=== PATIENT | male | born 1985 | race African-American/Black ===

== ENCOUNTER 2022-09-17 21:08 | Emergency (ER) | payer OTHER, SELFPAY ==
--- NOTE | ~2022-09-17 | XR_ITS ---
EXAMINATION: XR chest 2V DATE: 09/17/2022 21:49 INDICATION: Chest pain. TECHNIQUE: Frontal and lateral views of the chest were obtained. COMPARISON: None. FINDINGS: The chest demonstrates clear lungs without pneumonia, pleural effusion, or pneumothorax. Th e heart size is normal. IMPRESSION: 1. No acute cardiopulmonary disease. Reviewed, dictated and finalized at location A.
[2022-09-17 21:11] VITALS: BP 135/89; PULSE 82; RESP 16; TEMP 36.4; O2SAT 100
--- NOTE | 2022-09-17 21:28 | PC.NURSE ---
triage note completed by EVONNE Lomax
--- NOTE | 2022-09-17 21:34 | PC.NURSE ---
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 complaint of possible deviated septum and indigestion
--- NOTE | 2022-09-17 21:41 | ECG_ITS ---
Measurements Intervals [place] Rate: 78 P: 50 IN: 148 QRS: 38 QRSD: 118 T: 32 QT: 365 QTc: 418 Interpretive Statements SINUS RHYTHM INCOMPLETE RIGHT BUNDLE BRANCH BLOCK [90+ ms QRS DURATION, TERMINAL R IN V1/V2, 40+ ms S IN I/aVL/V4/V5/V6] ST ELEVATION CONSISTENT WITH PERICARDITIS, OR EARLY REPOLARIZATION [ST ELEVATION W/O NORMALLY INFLECTED T WAVE] NONSPECIFIC ST & T-WAVE ABNORMALITY NO PREVIOUS ECG AVAILABLE FOR COMPARISON Electronically Signed On 09-18-2022 13:56:55 CDT by Willy Ontiveros M.D.
[2022-09-17 22:05] LABS: Basophils Absolute Auto 0.1 K/mm3 (0.0-0.1); Basophils Percent Auto 1.2 % (0.2-1.2); Eosinophils Absolute Auto 0.4 K/mm3 (0-0.3); Eosinophils Percent Auto 5.2 % (0-4.4); Hematocrit 45.1 % (42.0-52.0); Hemoglobin 15.3 g/dL (14.0-18.0); Immature Granulocyte Absolute 0.02 K/mm3 (0.00-0.031); Immature Granulocyte Percent A 0.3 % (0-0.5); Lymphocytes Absolute Auto 1.59 K/mm3 (0.9-3.2); Lymphocytes Percent Auto 23.8 % (18.3-44.2); Mean Corpuscular HGB Conc 33.9 g/dl (32-36); Mean Corpuscular Hemoglobin 31.9 pg (26-34); Mean Corpuscular Volume 94.2 fl (80-100); Mean Platelet Volume 9.9 fl (7.4-10.4); Monocytes Absolute Auto 0.7 K/mm3 (0.1-0.6); Monocytes Percent Auto 10.3 % (2.6-8.5); Neutrophils Absolute Auto 3.9 K/mm3 (1.3-6.7); Neutrophils Percent Auto 59.2 % (45.5-73.1); Platelet Count Result 247 k/mm3 (150-375); Red Blood Count 4.79 M/mm3 (4.6-6.20); Red Cell Distribution Width 12.1 % (11.5-14.5); White Blood Count 6.7 K/mm3 (4.5-10.0)
[2022-09-17 22:19] LABS: Alanine Aminotransferase 27 U/L (6-50); Albumin Level 4.7 g/dL (3.5-5.1); Alkaline Phosphatase 37 U/L (38-126); Anion Gap 12 mmol/L (8-16); Aspartate Amino Transferase 27 U/L (17-59); Bilirubin,Total 0.4 mg/dL (0.2-1.3); Blood Urea Nitrogen 13 mg/dL (9-20); Calcium 9.1 mg/dL (8.4-10.2); Carbon Dioxide 30 mmol/L (22-30); Chloride 99 mmol/L (98-107); Estimated CRCL calculation 91 ml/min; Estimated Glomerular Filt Rate > 60; Glucose 90 mg/dL (65-110); Phosphorus 4.3 mg/dL (2.5-4.5); Potassium 4.1 mmol/L (3.4-5.0); Sodium 141 mmol/L (137-145)
[2022-09-17 22:36] LABS: Troponin I < 0.012 ng/mL (0.000-0.034)
--- NOTE | 2022-09-17 23:01 | ED.GENADULT ---
HPI - General Adult General Chief complaint: Neuro Symptoms/Deficit <JANEEN Figueroa Last Filed: 09/18/22 02:27> Stated complaint: tingling to bilateral arms/legs <Marycarmen Flores PA-C - Last Filed: 09/18/22 02:27> Time Seen by Provider: 09/17/22 21:29 <JANEEN Figueroa Last Filed: 09/18/22 02:27> History of Present Illness HPI narrative: 37-year-old male here for evaluation of paresthesias in his hands and feet for the past several hours. 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 Symptoms have improved without intervention since onset. He denies any pain, difficulty moving the limbs, swelling, fevers, chills, dysarthria, confusion, facial droop, changes to his vision. Additionally notes that he has had what he describes as acid reflux for the past 7 months. The pain comes on after a meal, is present in his epigastric region and is described as a burning sensation. Denies any nausea, vomiting, diaphoresis, leg swelling, exertional component of pain or cardiac history. <JANEEN Figueroa Last Filed: 09/18/22 02:27> Related Data Allergies/adverse reactions: Allergies Allergy/AdvReac Type Severity Reaction Status Date / Time No Known Allergies Allergy Verified 09/17/22 23:13 <JANEEN Figueroa Last Filed: 09/18/22 02:27> Review of Systems Review of Systems: Gen: Reports paresthesias in hands and feet. Denies fevers or chills Eyes: Denies eye pain or visual change ENT: Denies congestion Respiratory: Denies shortness of breath or cough CV: Denies chest pain or palpitations GI: Reports epigastric discomfort. Denies nausea, emesis or diarrhea denies burning, urgency, frequency or hematuria Musculoskeletal: Denies back pain or muscle pain Neuro: Denies numbness, tingling, weakness or focal weakness Skin: Denies rash Except as documented, all other systems reviewed and negative <JANEEN Figueroa Last Filed: 09/18/22 02:27> Exam Narrative: APPEARANCE: Well appearing, no pain in distress, well-nourished. Head: Normocephalic and atraumatic. EYES: PERRLA/EOMI, conjunctivae clear NOSE: No nasal drainage EARS: External ear normal in appearance THROAT: Oropharynx is clear. Mucous membranes are moist. NECK: Supple. No adenopathy, no masses. RESPIRATORY: Airway patent, respirations nonlabored. Clear to auscultation bilaterally, no rales, rhonchi, wheezing. CARDIOVASCULAR: Strong pulses in all 4 extremities. Regular rate and rhythm without murmurs, rubs, or gallops. ABDOMINAL: Normoactive bowel sounds. Soft, nontender, nondistended. No rebound tenderness or guarding. MUSCULOSKELETAL: 5 out of 5 strength in bilateral upper and lower extremities. Normal gait. Extremities are warm and well-perfused. Moves all extremities well. No edema. NEURO: Cranial nerves II through XII intact. [id number] normal. Normal speech. SKIN: Skin is warm and dry. No rashes. PSYCHIATRIC: Normal affect/mood. 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 I agree with the assessment and plan as documented. <Armani Rodríguez MD - Last Filed: 09/18/22 11:23> Vital Signs Vital signs: Vital Signs Temperature 97.6 F 09/17/22 21:11 Pulse Rate 82 09/17/22 21:11 Respiratory Rate 16 09/17/22 21:11 Blood Pressure 135/89 09/17/22 21:11 Pulse Oximetry 100 09/17/22 21:11 Temperature 97.6 F 09/17/22 21:11 Pulse Rate 82 09/17/22 21:11 Respiratory Rate 16 09/17/22 21:11 Blood Pressure 135/89 09/17/22 21:11 Pulse Oximetry 100 09/17/22 21:11 <Marycarmen Flores PA-C - Last Filed: 09/18/22 02:27> Vital Signs Temperature 97.6 F 09/17/22 21:11 Pulse Rate 82 09/17/22 21:11 Respiratory Rate 16 09/17/22 21:11 Blood Pressure 135/89 09/17/22 21:11 Pulse Oximetry 100
[2022-09-17] MEDS: BELLADONNA ALK/PHENOB ELIX 10 ML, MAG HYDROX/ALUMINUM HYD/SIMETH 30 ML, LIDOCAINE HCL 2... PO (23:17)
[2022-09-17 23:21] LABS: Lipase 77 U/L (23-300)
== END 2022-09-17 23:49 | disposition home or self-care (01) ==
PROVIDERS: Physician Assistant; Emergency Provider Preventive Medicine Aerospace Medicine
DX: R20.2 Paresthesia of skin (principal); I45.10 Unspecified right bundle-branch block; R94.31 Abnormal electrocardiogram [ECG] [EKG]
CPT/HCPCS: 36415; 71046; 80053; 83690; 83735; 84100; 84484; 85025; 93005; 99284; A9270

== ENCOUNTER 2022-10-16 19:04 | Emergency (ER) | payer OTHER, SELFPAY ==
[2022-10-16] VITALS (11 sets, daily range): BP systolic 115–138; BP diastolic 65–83; PULSE 57–68; RESP 10–15; TEMP 36.6; O2SAT 98–100
--- NOTE | ~2022-10-16 | XR_ITS ---
EXAMINATION: XR chest 2V DATE: 10/16/2022 19:41 INDICATION: Chest pain and dizziness TECHNIQUE: 09/17/2022 COMPARISON: None available FINDINGS: The lungs are free of acute opacities. No pleural effusion or pneumothorax. The cardiomedia stinal silhouette is normal. The visualized bones and soft tissues are unremarkable. IMPRESSION: 1. No acute cardiopulmonary abnormality. Reviewed, dictated and finalized at location F. N MACHINE OPERATOR
--- NOTE | 2022-10-16 19:12 | ECG_ITS ---
Measurements Intervals [place] Rate: 61 P: 38 [place]: 151 QRS: 38 QRSD: 110 T: 32 QT: 390 QTc: 394 Interpretive Statements SINUS RHYTHM INCOMPLETE RIGHT BUNDLE BRANCH BLOCK ST ELEVATION IN DIFFUSE LEADS- CONSIDER PERICARDITIS OR EARLY REPOLARIZATION BASELINE ARTIFACT- V1-V3 ABNORMAL ECG COMPARED TO ECG 09/17/2022 22:28:37 NO SIGNIFICANT CHANGES Electronically Signed On 10-16-2022 20:52:24 [employer] PIPING DESIGNER by Barry Mcintyre D.O.
[2022-10-16 19:28] LABS: Basophils Absolute Auto 0.1 K/mm3 (0.0-0.1); Basophils Percent Auto 1.3 % (0.2-1.2); Eosinophils Absolute Auto 0.3 K/mm3 (0-0.3); Eosinophils Percent Auto 5.6 % (0-4.4); Hematocrit 42.8 % (42.0-52.0); Hemoglobin 14.8 g/dL (14.0-18.0); Immature Granulocyte Absolute 0.01 K/mm3 (0.00-0.031); Immature Granulocyte Percent A 0.2 % (0-0.5); Lymphocytes Absolute Auto 1.46 K/mm3 (0.9-3.2); Mean Corpuscular HGB Conc 34.6 g/dl (32-36); Mean Corpuscular Hemoglobin 32.8 pg (26-34); Mean Corpuscular Volume 94.9 fl (80-100); Mean Platelet Volume 10.1 fl (7.4-10.4); Monocytes Absolute Auto 0.6 K/mm3 (0.1-0.6); Monocytes Percent Auto 11.9 % (2.6-8.5); Neutrophils Absolute Auto 2.8 K/mm3 (1.3-6.7); Platelet Count Result 240 k/mm3 (150-375); Red Blood Count 4.51 M/mm3 (4.6-6.20); Red Cell Distribution Width 12.2 % (11.5-14.5); White Blood Count 5.2 K/mm3 (4.5-10.0)
[2022-10-16 19:38] LABS: Alanine Aminotransferase 26 U/L (6-50); Albumin Level 4.2 g/dL (3.5-5.1); Alkaline Phosphatase 35 U/L (38-126); Anion Gap 11 mmol/L (8-16); Aspartate Amino Transferase 29 U/L (17-59); Bilirubin,Total 0.4 mg/dL (0.2-1.3); Blood Urea Nitrogen 12 mg/dL (9-20); Calcium 8.9 mg/dL (8.4-10.2); Carbon Dioxide 27 mmol/L (22-30); Chloride 103 mmol/L (98-107); Estimated CRCL calculation 100 ml/min; Estimated Glomerular Filt Rate > 60; Glucose 94 mg/dL (65-110); Lipase 63 U/L (23-300); Potassium 4.2 mmol/L (3.4-5.0); Sodium 141 mmol/L (137-145)
[2022-10-16 19:39] LABS: INR 1.1; Prothrombin Time 13.6 Seconds (11.1-14.7)
[2022-10-16 19:40] LABS: Partial Thromboplastin Time 24.2 SECONDS (22.3-36.8)
[2022-10-16] MEDS: BELLADONNA ALK/PHENOB ELIX 10 ML, MAG HYDROX/ALUMINUM HYD/SIMETH 30 ML, LIDOCAINE HCL 2... PO (19:49)
[2022-10-16 19:50] LABS: Troponin I < 0.012 ng/mL (0.000-0.034)
--- NOTE | 2022-10-16 19:53 | PC.NURSE ---
No STEMI per EDP Rafia.
--- NOTE | 2022-10-16 20:03 | ED.GENADULT ---
HPI - General Adult General Chief complaint: Chest Pain Stated complaint: chest pain Time Seen by Provider: 10/16/22 19:16 History of Present Illness HPI narrative: Patient is a 37-year-old gentleman who presents emerged department with chief complaint of chest pain. 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 Patient states symptoms are doing much better at this time and are almost resolved. Patient states that he did not get diaphoretic with this reports no syncopal episode patient states that he had an episode of paresthesias several months ago and had an EKG that showed LVH. When EMS was called they did an EKG in the field that showed some ST elevation but this is unchanged from previous EKGs. Patient reports that he ate Bowie earlier today when he was creating a burn Related Data Allergies Allergy/AdvReac Type Severity Reaction Status Date / Time No Known Allergies Allergy Verified 10/16/22 19:24 Review of Systems Review of Systems: A 10 system review of systems was completed on the patient and is negative except for what is stated in the HPI. Nursing and ancillary documentation was reviewed. Exam Narrative: GENERAL: Well-appearing, well-nourished, and in no acute distress. HEAD: Normocephalic, atraumatic. EYES: PERRLA and EOMI. ENT: Nares clear, no rhinorrhea or epistaxis. Mucous membranes moist. NECK: Supple. CHEST: Clear to auscultation. No respiratory distress. HEART: Regular rate and rhythm. No murmur heard. Normal peripheral pulses. ABDOMEN: Soft, nontender, nondistended, normal active bowel sounds. EXTREMITIES: Normal range of motion. No edema. SKIN: Warm, dry, no rash. NEURO: No focal deficits. Alert and oriented x3. PSYCH: Normal mood and affect. Course Vital Signs Vital signs: Vital Signs Temperature 36.6 C 10/16/22 19:06 Pulse Rate 63 10/16/22 19:06 Respiratory Rate 10 L 10/16/22 19:06 Blood Pressure 115/79 10/16/22 19:06 Pulse Oximetry 100 10/16/22 19:06 Oxygen Delivery Room Air 10/16/22 19:06 Temperature 36.6 C 10/16/22 19:06 Pulse Rate 57 L 10/16/22 23:11 Respiratory Rate 11 L 10/16/22 23:11 Blood Pressure 123/78 10/16/22 23:11 Pulse Oximetry 99 10/16/22 23:11 Oxygen Delivery Room Air 10/16/22 19:06 Medical Decision Making Vital Signs Vital Signs: Vital Signs Temperature 36.6 C 10/16/22 19:06 Pulse Rate 63 10/16/22 19:06 Respiratory Rate 10 L 10/16/22 19:06 Blood Pressure 115/79 10/16/22 19:06 Pulse Oximetry 100 10/16/22 19:06 Oxygen Delivery Room Air 10/16/22 19:06 Temperature 36.6 C 10/16/22 19:06 Pulse Rate 57 L 10/16/22 23:11 Respiratory Rate 11 L 10/16/22 23:11 Blood Pressure 123/78 10/16/22 23:11 Pulse Oximetry 99 10/16/22 23:11 Oxygen Delivery Room Air 10/16/22 19:06 Lab Data Result diagrams: 10/16/22 19:23 10/16/22 19:23 Labs: Lab Results 10/16/22 10/16/22 10/16/22 Range/Units 19:23 19:23 19:23 WBC 5.2 (4.5-10.0) K/mm3 RBC 4.51 L (4.6-6.20) M/mm3 Hgb 14.8 (14.0-18.0) g/dL Hct 42.8 (42.0-52.0) % MCV 94.9 (80-100) fl MCH 32.8 (26-34) pg MCHC 34.6 (32-36) g/dl RDW 12.2 (11.5-14.5) % Plt Count 240 (150-375) k/mm3 MPV 10.1 (7.4-10.4) fl Immature Gran % (Auto) 0.2 (0-0.5) % Neut % (Auto) 53.0 (45.5-73.1) % Lymph % (Auto) 28.0 (18.3-44.2) % [place] % (Auto) 11.9 H (2.6-8.5) % Eos % (Auto) 5.6 H (0-4.4) % Baso % (Auto) 1.3 H (0.2-1.2) % Lymph # (Auto) 1.46 (0.9-3.2) K/mm3 [place] # (Auto) 0.6 (0.1-0.6) K/mm3 Eos # (Auto) 0.3 (0-0.3) K/mm3 Baso # (Auto) 0.1 (0.0-0.1) K/mm3 Abs Immat Gran (auto) 0.01 (0.00-0.031) K/mm3 Absolute Neuts (auto) 2.8 (1.3-6.7) K/mm3 Absolute Nucleated RBC 0.0 (0.0-0.012) K/mm3 Nucleated RBC % 0.0
[2022-10-16 22:43] LABS: Troponin I < 0.012 ng/mL (0.000-0.034)
== END 2022-10-17 00:18 | disposition home or self-care (01) ==
PROVIDERS: Emergency Medicine; Emergency Provider Emergency Medicine
DX: R07.9 Chest pain, unspecified (principal)
CPT/HCPCS: 36415; 71046; 80053; 83690; 84484; 85025; 85610; 85730; 93005; 99284; A9270

== ENCOUNTER 2024-07-13 02:25 | Emergency (ER) | payer OTHER, SELFPAY ==
--- NOTE | ~2024-07-13 | XR_ITS ---
EXAMINATION: XR chest 2V DATE: 07/13/2024 03:01 INDICATION: Left chest pain. TECHNIQUE: Frontal and lateral views of the chest were obtained. COMPARISON: Chest 2 views 10/16/2022 FINDINGS: There is no pneumonia, pleural effusion, or pneumothorax. The heart size is normal. IMPRESSION: 1. No acute cardiopulmonary disease. Reviewed, dictated and finalized at location A.
[2024-07-13 02:32] VITALS: BP 141/73; PULSE 71; RESP 13; TEMP 37.6; O2SAT 98
--- NOTE | 2024-07-13 02:38 | ED.CHESTPAIN ---
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 He notes that it was sharp in nature and then improved in intensity although he is still experiencing some discomfort upon arrival to the emergency department. It is associated with a headache he states he was diaphoretic initially but this resolved. He denies any nausea or vomiting. He does not take any medications at baseline. He states the same thing happened about a year and half to 2 years ago. He was initially short of breath with the symptoms the states that that resolved. EMS administered 4 aspirin. They did offer to give nitro but patient had deferred as he stated he did want to make his headache worse. He denies any prior diagnosis of hypertension or hyperlipidemia. No family history of myocardial infarction before 65 years old. No prior myocardial infarction for patient. He denies a history of PAT, TIA, as CVA or CAD. He does not smoke. 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 HEAD: Normocephalic, atraumatic. EYES: Non injected, non icteric ENT: Nares clear, no rhinorrhea or epistaxis. NECK: Supple. CHEST: Speaking in full sentences. No respiratory distress. HEART: Regular rate and rhythm. . ABDOMEN: Soft, nondistended. EXTREMITIES: Normal range of motion. No lower extremity edema. SKIN: Warm, dry, no rash. NEURO: No focal deficits. Alert and oriented x3. PSYCH: Normal mood and affect. 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 In the emergency department he is afebrile with acceptable vital signs. HEART SCORE History 2 highly suspicious 1 moderately suspicious 0 slightly suspicious History score [address] depression/elevation not due to LBBB, LVH, or digoxin [address] depression but LBBB, LVH, nonspecific repolarization changes 0 normal ECG score 0 Age 2 >/= 65 1 45-64 0 <45 Age score 0 Risk factors (HTN, hypercholesterolemia, DM, obesity with BMI >30, current smoker or cessation </=3mo), positive fam hx with parent or sibling with CVD before age 65, atherosclerotic disease (prior AR, PCI/CABG, CVA/TIA, or peripheral arterial disease) 2 >/= 3 risk factors or history of atherosclerotic dz 1 - 1-2 risk factors (obesity) 0 no known risk factors Risk factor score 1 Initial Troponin 2 >3 times normal limit 1 1-3 times normal limit 0 less than or equal to normal limit Troponin score 0 Total HEART Score 2; repeat troponin negative. Patient is otherwise low risk and thus stable for discharge. Advised to follow-up primary care p
[2024-07-13 02:40] VITALS: PULSE 71; O2SAT 99
--- NOTE | 2024-07-13 02:40 | ECG_ITS ---
Test Date: 2024-07-13 02:36:46 Measurements Intervals [place] Rate: 76 P: 48 [place]: 179 QRS: 31 QRSD: 129 T: 37 QT: 404 QTc: 455 Interpretive Statements SINUS RHYTHM RIGHT BUNDLE BRANCH BLOCK [120+ ms QRS DURATION, UPRIGHT V1, 40+ ms S IN I/aVL/V4/V5/V6] No previous ECG available for comparison Electronically Signed On 07-13-2024 09:56:41 CDT by Justin Caal M.D.
[2024-07-13 02:52] LABS: Basophils Absolute Auto 0.1 K/mm3 (0.0-0.1); Basophils Percent Auto 0.7 % (0.2-1.2); Eosinophils Absolute Auto 0.3 K/mm3 (0-0.3); Eosinophils Percent Auto 3.4 % (0-4.4); Hematocrit 44.4 % (42.0-52.0); Hemoglobin 15.2 g/dL (14.0-18.0); Immature Granulocyte Absolute 0.03 K/mm3 (0.00-0.031); Immature Granulocyte Percent A 0.4 % (0-0.5); Lymphocytes Absolute Auto 2.12 K/mm3 (0.9-3.2); Lymphocytes Percent Auto 28.5 % (18.3-44.2); Mean Corpuscular HGB Conc 34.2 g/dl (32-36); Mean Corpuscular Hemoglobin 32.3 pg (26-34); Mean Corpuscular Volume 94.3 fl (80-100); Mean Platelet Volume 9.8 fl (7.4-10.4); Monocytes Absolute Auto 0.7 K/mm3 (0.1-0.6); Monocytes Percent Auto 8.9 % (2.6-8.5); Neutrophils Absolute Auto 4.3 K/mm3 (1.3-6.7); Neutrophils Percent Auto 58.1 % (45.5-73.1); Platelet Count Result 300 k/mm3 (150-375); Red Blood Count 4.71 M/mm3 (4.6-6.20); Red Cell Distribution Width 11.9 % (11.5-14.5); White Blood Count 7.4 K/mm3 (4.5-10.0)
[2024-07-13 03:10] LABS: INR 0.9; Prothrombin Time 12.9 Seconds (11.1-14.7)
[2024-07-13 03:57] LABS: Alanine Aminotransferase 23 U/L (6-50); Albumin Level 4.3 g/dL (3.5-5.1); Alkaline Phosphatase 36 U/L (38-126); Anion Gap 8 mmol/L (4-12); Aspartate Amino Transferase 35 U/L (17-59); Bilirubin,Total 0.2 mg/dL (0.2-1.3); Blood Urea Nitrogen 9 mg/dL (9-20); Calcium 9.1 mg/dL (8.4-10.2); Carbon Dioxide 31 mmol/L (22-30); Chloride 100 mmol/L (98-107); Estimated CRCL calculation 104 ml/min; Estimated Glomerular Filt Rate > 60; Glucose 95 mg/dL (65-110); Lipase 66 U/L (23-300); Potassium 3.7 mmol/L (3.4-5.0); Sodium 139 mmol/L (137-145)
[2024-07-13 04:09] LABS: Troponin I < 0.012 ng/mL (0.000-0.034)
[2024-07-13 04:26] VITALS: BP 125/85; PULSE 75; RESP 18; O2SAT 95
--- NOTE | 2024-07-13 05:40 | ECG_ITS ---
Test Date: 2024-07-13 05:33:54 Measurements Intervals [place] Rate: 65 P: 33 [place]: 167 QRS: 31 QRSD: 109 T: 30 QT: 389 QTc: 405 Interpretive Statements SINUS RHYTHM WITH SINUS ARRHYTHMIA RIGHT BUNDLE BRANCH BLOCK [90+ ms QRS DURATION, TERMINAL R IN V1/V2, 40+ ms S IN I/aVL/V4/V5/V6] Compared to ECG 07/13/2024 02:36:46 NO SIGNIFICANT CHANGES Electronically Signed On 07-13-2024 09:57:22 CDT by Justin Caal M.D.
[2024-07-13 05:54] VITALS: BP 122/84; PULSE 76; RESP 12; O2SAT 98
[2024-07-13 06:38] LABS: Troponin I < 0.012 ng/mL (0.000-0.034)
== END 2024-07-13 06:46 | disposition home or self-care (01) ==
PROVIDERS: Emergency Provider Student in an Organized Health Care Education/Training Program; PCP Internal Medicine
DX: R07.9 Chest pain, unspecified (principal); I45.10 Unspecified right bundle-branch block
CPT/HCPCS: 36415; 71046; 80053; 83690; 84484; 85025; 85610; 85730; 93005; 99284

== ENCOUNTER 2025-03-08 18:25 | Observation (INO) | payer OTHER, SELFPAY ==
--- NOTE | ~2025-03-08 | NM_ITS ---
EXAMINATION: NM adam stress w perfusion DATE: 03/09/2025 13:10 INDICATION: Chest pain TECHNIQUE: Rest images were obtained following intravenous administration of 10.4 mCi Tc99m tetrofosm in (Myoview). The patient was infused intravenously with Lexiscan (Regadenoson). Then, 33.7 mCi Tc99m tetrofosmin (Myoview) was administered intravenously, and stress images were obtained. Data was laxmi nstructed into short axis and horizontal and vertical long axis SPECT images. Gated SPECT images were also obtained. COMPARISON: None. FINDINGS: There is no definite reversible or fixed perfusion abnormality to suggest ischemia or infar ction. There is normal left ventricular chamber size, wall motion and ejection fraction. Left ventr icular ejection fraction measures 67%. IMPRESSION: 1. Normal myocardial perfusion at rest and during stress. 2. Left ventricular ejection fraction measuring 67%. Reviewed, dictated and finalized at location A.
--- NOTE | ~2025-03-08 | XR_ITS ---
XR chest 2V Ordering provider: Saima Ford History: 39 years Male with . cp . Comparison: July 13, 2024 FINDINGS: MEDIASTINUM: The cardiac silhouette is not enlarged. LUNGS: No infiltrates, effusions or pneumothorax. OTHER: No free air under the diaphragm. IMPRESSION: No acute cardiopulmonary pathology. Reviewed, dictated and finalized at location A.
--- OUTSIDE RECORDS SUMMARY | 2025-03-08 18:28 | XMS_ITS | CONTINUITY OF CARE DOCUMENT ---
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 Tender Name Role Phone Poncho Mix MD Unavailable [phone] Poncho Mix MD Unavailable [phone] PROBLEMS Condition Status Date Provider Notes Chest pain active Poncho Mix MD Fatigue active Poncho Mix MD Cardiovascular screening active Poncho oden MD Palpitations active Poncho Mix MD Dizziness active Poncho Mix MD ENCOUNTERS Date Type Provider Location Encounter Diag nosis - In-person encounter Office Visit Poncho Mix MD [facility] Chest painFatigueCardiovascular screeningPalpitationsDizziness VITAL SIGNS Date Observation Value Provider weight E&M 208 [lb_av] Augustine sanchez Body Mass Index (Ratio) 29.84 kg/m2 Anastasia Mix MD blood pressure, diastolic 73 mm[Hg] Sin Mix MD blood pressure, systolic 122 mm[Hg] John Mix MD oxygen saturation, oximetry 98 % Aisha Sandoval respiratory rate E&M 18 /min Angeles Sandoval pulse rate 81 /min Aisha hernandez height E&M 70 [in_i] Aisha hernandez weight E&M 208 [lb_av] Aisha Lomax son ALLERGIES No Known Drug Allergies HISTORY OF MEDICATION USE Medication Status Instructions Dates Provider Indications Com ments prednisone 20 mg tablet active null 5 qieuser qieuser Imported from [facility] (02-Mar-2022 at 01:45:00 PM) omeprazole 20 mg capsule,delayed release(DR/EC) active 40 mg oral 7 qieuser qieuser Imported from [facility] (02-Mar-2022 at 01:45:00 PM) METHOCARBAMOL 500 MG TABS active 500 mg oral 5 qieuser qieuser Imported from [facility] (02-Mar-2022 at 01:45:00 PM) celecoxib 200 mg capsule active 200 mg oral 5 qieuser qieuser Imported from [facility] (02-Mar-2022 at 01:45:00 PM) BENZONATATE 100 MG CAPS active 100 mg oral 6 qieuser qieuser Imported from [facility] (02-Mar-2022 at 01:45:00 PM) aspirin 81 mg tablet,chewable completed 81 mg oral 5 - 4 qieuser qieuser Imported from [facility] (02-Mar-2022 at 01:45:00 PM) SOCIAL HISTORY Date Observation Value Provider number of grandchildren Pocnho Mix MD social history E&M S moking History: Araceli neves has never smoked. Poncho Mix MD social history reviewed E&M revi ewed - no changes required Poncho Mix MD drug use no Aisha hernandez alcohol use, average drinks per day social Aisha Sandoval alcohol use yes Aisha hernandez smoking status Never smoker Aisha peterson INSURANCE PROVIDERS Payer name Policy type / Coverage type [place] [employer] party ID [employer] [id number] TREATMENT PLAN Date Name Performer [id number],W, Poncho Urrutia ra, [place] [id number],W, Poncho Urrutia ra, [place] [id number],W, Poncho Urrutia ra, [place] [id number],W, Poncho Urrutia ra, MD Cardiology [facility] [place] Cardiology [place] [place] Cardiology [place] [place] Cardiology [place] [place] Date Name Holter Ext (8-14d) Monitor - Telemetry (Mobile Cardiac) Stress Routine Complete Echo
--- OUTSIDE RECORDS SUMMARY | 2025-03-08 18:28 | XMS_ITS | Referral Summary ---
Author Organization [facility] Address [address] [place] [address] Care Team Providers Care Procedures Nurse Name Role Phone No, Physician Primary Care Provider [phone] Allergies No known active allergies Medications omeprazole (PriLOSEC) 20 mg capsule Take 2 capsules (40 mg total) by mouth daily for 14 days 28 capsule 1 Active benzonatate (TESSALON) 100 mg capsuleIndication s:Cough Take 1 capsule (100 mg total) by mouth 3 (three) times a day as needed for cough 20 capsule 2 Active aspirin 81 mg chewable tabletIndications :Myocardial Reinfarction Prevention Take 1 tablet (81 mg total) by mouth daily 30 tablet 2 Active predniSONE (DELTASONE) 20 mg tablet 3 tabs po qd X 3 days then 2 tabs po qd X 3 days then 1 tab po qd X 3 days. Take all tablets in the AM with food 18 tablet 2 Active celecoxib (CeleBREX) 200 mg capsule Take 1 capsule (200 mg total) by mouth daily 15 capsule 2 Active methocarbamoL (ROBAXIN) 500 mg tabletIndications :Muscle Spasm Take 1 tablet (500 mg total) by mouth nightly as needed for muscle spasms 14 tablet 2 Active Active Problems No known active problems Social History Tobacco Use Types Packs/Day Years Used Date Smoking Tobacco: Never Alcohol Use Standard Drinks/Week Comments Yes 0 (1 standard drink = 0.6 oz pur e alcohol) Personal Safety Answer Date Recorded Getting School Help Needed Not on file 11/26 Sex and Gender Information Value Date Recorded Sex Assigned at Not on file 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 Gender Identity Not on file Sexual Orientation Not on file Last Filed Vital Signs Vital Sign Reading Time Taken Comments Blood Pressure 125/68 02/11/2022 8:38 PM CDT Pulse 65 02/11/2022 8:38 PM CDT Temperature 36.3 C (97.4 F) 02/11/2022 2:47 PM CDT Respiratory Rate 16 02/11/2022 8:38 PM CDT Oxygen Saturation 98% 02/11/2022 8:38 PM CDT Inhaled Oxygen Concentration - - Weight 95.7 kg (210 lb 15.7 oz) 02/11/2022 2:47 PM CDT Height 182.9 cm (6') 02/11/2022 2:47 PM CDT Body Mass Index 28.61 02/11/2022 2:47 PM CDT Plan of Treatment Not on file Insurance BAILEY [place]DLETON [facility] [employer] COMPENSATION GENERIC Care Teams Procedures Nurse Relationship Specialty Start Date End Date No, Physician PCP - General 06/15/21
--- OUTSIDE RECORDS SUMMARY | 2025-03-08 18:28 | XMS_ITS | Clinical Summary ---
Author Organization 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
--- OUTSIDE RECORDS SUMMARY | 2025-03-08 18:28 | XMS_ITS | Clinical Summary ---
Author Organization [facility] Address [address] [place] [address] Care Team Providers Care Manager Party Name Role Phone Unavailable Primary Care Provider Unavailabl e Source Comments [facility],non-owned Affiliates and Associated Physician Practices is amultiple site organization consisting of ambulatory clinics and hospital sitesin [place], [place], [place] and [place]. This disclosure is being madepursuant to the Care Everywhere program and may not contain all information available regarding this patient. Last updated 18.[facility] Allergies No known active allergies Medications Be aware that medications may not be up to date on this document. Always verify current medications with the patient. No known medications Immunizations Name Administration Dates Next Due TDAP (7yrs+) 09/15/2017 Family History Medical History Relation Name Comments Cancer - Prostate Father Hypertension Father Hypertension Mother Asthma Neg Hx Autoimmune Disease Neg Hx Bipolar Disorder Neg Hx Cancer - Breast Neg Hx Cancer - Colon Neg Hx Cancer - Other Neg Hx Cancer - Ovarian Neg Hx Cancer - Pancreatic Neg Hx Depression Neg Hx Eczema Neg Hx Migraine Neg Hx Osteoporosis Neg Hx Seizures Neg Hx Sudd. <30 Neg Hx Thyroid Disease Neg Hx Ulcerative Colitis Neg Hx Relation Name Status Comments Father Alive Mother Alive Social History Tobacco Use Types Packs/Day Years Used Date Smoking Tobacco: Never Smokeless Tobacco: Never Tobacco Cessation:Counseling Given: No Alcohol Use Standard Drinks/Week Comments No 0 (1 standard drink = 0.6 oz pur e alcohol) Sex and Gender Information Value Date Recorded Sex Assigned at Not on file Gender Identity Not on file Sexual Orientation Not on file Last Filed Vital Signs Vital Sign Reading Time Taken Comments Blood Pressure 112/60 08/24/2018 12:16 PM CDT Pulse 88 08/24/2018 12:16 PM CDT Temperature 36.7 C (98 F) 08/24/2018 12:16 PM CDT Respiratory Rate 16 08/24/2018 12:16 PM CDT Oxygen Saturation 100% 02/16/2018 3:00 AM CDT Inhaled Oxygen Concentration - - Weight 81.6 kg (180 lb) 08/24/2018 12:16 PM CDT Height 182.9 cm (6') 08/24/2018 12:16 PM CDT Body Mass Index 24.41 08/24/2018 12:16 PM CDT Plan of Treatment Health Maintenance Due Date Last Done Comments HIV SCREENING 2002 HEPATITIS C SCREENING 05/03/2005 HEPATITIS B VACCINE (1 of 3 - 19+ 3-dose series) 2006 COVID-19 VACCINE (2023-2 5 season) 2024 DEPRESSION SCREENING 11/29/2024 INFLUENZA VACCINE (Season Ended) 2025 DTAP/TDAP/TD VACCINES (2 - T d or Tdap) 09/15/2027 09/15/2017 ZOSTER VACCINE (1 of 2) 2037 HIB VACCINE Aged Out No longer eligi ble based on patient's age to complete this topic HPV VACCINE Aged Out No longer eligi ble based on patient's age to complete this topic MENINGOCOCCAL (Group B) VACC INE SHARED DECISION-MAKING Aged Out No longer eligibl e based on patient's age to complete this topic MENINGOCOCCAL GROUPS A/C/Y/W VACCINE Aged Out No longer eligible b ased on patient's age to complete this topic PNEUMOCOCCAL VACCINE Aged Out No long er eligible based on patient's age to complete this topic
--- OUTSIDE RECORDS SUMMARY | 2025-03-08 18:28 | XMS_ITS | Data Portability ---
Author Organization [facility], [employer] Address [address] [place] [address] Care Team Providers Care Glazier Helper Name Role Phone RHODA GURROLA Primary Care Provider Assessment Encounter Date Assessment Date Assessment LastModified by Organization Details LastModified Time 11/17/2023 11/17/2023 Patient presented for follow up. Studies ordered as below. Discussed plan with patient/careg iver, who expressed understanding . Follow up as noted below. Not available 11/17/2023 11:08:56 11/26/2023 11/26/2023 Patient presented for follow up. Studies ordered as below. Discussed plan with patient/careg iver, who expressed understanding . Follow up as noted below. [email or web address] Not available 11/26/2023 12:20:11 06/21/2024 06/21/2024 Patient presented for follow up. Studies ordered as below. Discussed plan with patient/careg iver, who expressed understanding . Follow up as noted below. Not available 06/21/2024 10:46:40 09/27/2024 09/27/2024 Patient presented for follow up. Studies ordered as below. Discussed plan with patient/careg iver, who expressed understanding . Follow up as noted below. Not available 09/27/2024 09:15:57 Plan of Treatment Reminders Order Date Submit Date Provider Last Modified By Organization Details Last Modified Time Details Appointments None recorded. Lab lipid panel w/ direct LDL, serum 2023 024 ATHENAFAX [facility] (Lab), [address] [place] [facility], [place], [address], 4 09:52:50 CMP, serum or plasma 2023 [facility] (Lab), [address] [place] [facility], [place], [address], 4 09:52:49 TSH, serum or plasma 2023 [facility] (Lab), [address] [place] [facility], [place], [address], 4 04:03:49 HbA1c (hemoglobi n A1c), blood 2023 [facility] (Lab), [address] [place] [facility], [place], [address], 4 09:52:50 Influenza A ag, rapid, nasopharyn geal 2023 [facility] (Lab), [address] [place] [facility], [place], [address], 4 09:52:50 influenza B Ag, rapid, nasopharyn geal 2023 [facility] (Lab), [address] [place] [facility], [place], [address], 4 09:52:50 SARS-CoV-2 N gene QL, NATY + probe detection, nasopharyn x 2023 [facility] (Lab), [address] [place] [facility], [place], [address], 4 09:52:50 CBC 2023 [facility] (Lab), [address], [place], [address], 4 09:52:49 H pylori Ag, stool 2023 [facility] (Lab), [address], [place], [address], 4 17:24:36 lipid panel w/ direct LDL, serum 2023 024 [facility] (Lab), [address], [place], [address], 4 11:42:25 CMP, serum or plasma 2023 024 [facility] (Lab), [address], [place], [address], 4 11:42:26 TSH, serum or plasma 2023 024 [facility] (Lab), [address], [place], [address], 4 04:05:24 vitamin D, 25-hydroxy , total, serum 2023 024 [facility] (Lab), [address], [place], [address], 4 04:05:24 vitamin D, 25-hydroxy , total, serum 2022 023 [facility] (Lab), [address], [place], [address], 3 05:24:20 CBC w/ auto diff 2022 023 JANEE [facility] (Lab), [address] [place] [facility], [place], [address], 3 05:23:46 CMP, serum or plasma 2022 023 ATHENAFAX [facility] (Lab), [address] [place] [facility], [place], [address], 3 11:34:[address] referral 2023 024 JANEE Herrera MD, [address] [place], [address], 4 04:10:33 sleep medicine referral 2023 024 JANEE Patel MD, [address] [place], [address], 4 04:08:36 dentist referral 2023 024 [email or web address] Alpesh Naidu, [address] [place], [address], 4 11:56:09 otolaryngo logist referral 2022 023 JANEE Patel MD, [address] [place], [address], 4 04:06:06 pulmonolog ist referral 2022 023 JANEE Melendrez MD, [address], [address], 4 04:06:06 dentist referral 2022 023 JANEE Naidu, [address] [place], [address], 4 04:02:57 Procedures None recorded. Surgeries None recorded. Imaging None recorded. Medication Orders doxycyclin e hyclate 100 mg capsule 2023 [facility][id number], [address], [place], [id number], 4 09:50:55 benzonatat e 100 mg capsule 2023 [facility] #47243, [address], [place], [id number], 4 09:50:49 trazodone 50 mg tablet 2023 [facility] #84814, [address], [place], [id number], 4 17:23:26 cholecalci ferol (vitamin D3) 125 mcg (5,000 unit) capsule 2023 [facility] #61599, [address], [place], [id number], 4 17:23:30 montelukas t 10 mg tablet 2023 [facility] #94199, [address], [place], [id number], 4 17:23:26 trazodone 50 mg tablet 2023 024 [facility]18806, [address], [place], [id number], 4 11:40:35 Patient TargetsNo targets recorded. Patient Instructions Encounter Date Encounter Id Patient Instructions Last Modified By Organization Details Last Modified Time 11/17/2023 [id number] tooth and gum pain: care instructions mshenouda Not available 11/17/2023 11:32:46 snoring: care instructions mshenouda Not available 11/17/2023 11:32:45 11/26/2023 [id number] nasal septum repair: before your surgery mshenouda Not available 11/26/2023 13:07:40 06/21/2024 [id number] insomnia: care instructions [facility] Not available 06/21/2024 11:40:29 tooth and gum pain: care instructions [facility] Not available 06/21/2024 11:40:29 body mass index: care instructions mshenouda Not available 06/21/2024 11:40:29 learning about healthy weight mshenouda Not available 06/21/2024 11:40:28 Reason for Referral Dentist Referral for Toothac he Referring Physician: Rhoda Gurrola Internal Medicine, Encounter Date: 11/17/2023 Director Clinical Applications Referral for O bstructive sleep apnea of adult Referring Physician: Rhoda Gurrola Internal Medicine, Encounter Date: 11/26/2023 Social Organization Professor Referral fo r Deviated nasal septum Referring Physician: Rhoda Gurrola Internal Medicine, Encounter Date: 11/26/2023 Sleep Medicine Referral for Obstructive sleep apnea of adult Referring Physician: Rhoda Gurrola Internal Medicine, Encounter Date: 06/21/2024 Dentist Referral for Toothac he Referring Physician: Rhoda Gurrola Internal Medicine, Encounter Date: 06/21/2024 Pie Icer Machine Referral for At ypical chest pain Referring Physician: Rhoda Gurrola Internal Medicine, Encounter Date: 08/10/2024 Results Created Date Observation Date Name Description Value Unit Range Abnormal Flag Note LastModifiedBy Organization Detail LastModifiedTime 11/18/20 23 11/06/2023 home sleep study No observ ation record ed. JANEE [facility] [email or web address] , [place], [address], 11/02/2024 14:04:46 11/18/20 23 11/06/2023 home sleep study No observ ation record ed. [facility] [email or web address] , [place], [address], 11/26/2023 12:56:19 07/13/2007/13/2024 XR, chest , 2 view No observ ation record ed. [facility] [address], [place], [address], 11/02/2024 14:04:14 08/11/20 24 07/13/2024 elect melinda christensen am No observ ation record ed. [facility] [address], [place], [address], 09/27/2024 09:49:58 08/12/20 XR, chest No observ ation record ed. [place] [id number], [place], [address], 09/27/2024 09:49:58 Result Notes None recorded. Problems Name Problem SNOMED Code Status Onset Date Resolution Date Notes Provider Name and Address Organization Details Recorded Time Gastroesoph ageal reflux disease without esophagitis 053576626 Active 2023 Rhoda Gurrola MD [address], [place], [address], [facility] 4 17:16:35 Vitamin D deficiency 58829071 Active 2021 Rhoda Gurrola MD [address], [place], [address], [facility] 2 13:13:44 History of SARS-CoV-2 6312056408750 47887 Active 2021 Rhoda Gurrola MD [address], [place], [address], [facility] 2 13:14:03 Mixed anxiety and depressive disorder 998217975 Active 2021 Rhoda Gurrola MD [address], [place], [address], [facility] 2 16:14:43 Congestion of nasal sinus 58765804 Active 2021 Rhoda Gurrola MD [address], [place], [address], [facility] 2 16:17:15 Snoring 38026285 Active 2021 Rhoda Gurrola MD [address], [place], [address], [facility] 2 12:16:42 Body mass index 30+ - obesity 967038918 Active 2022 Rhoda Gurrola MD [address], [place], [address], [facility] 3 11:48:02 Mixed hyperlipide marcos 951812152 Active 2022 Rhoda Gurrola MD [address], [place], [address], [facility] 3 11:21:57 Moderate recurrent major depression 58924476 Active 2022 Rhoda Gurrola MD [address], [place], [address], [facility] 3 18:48:28 Generalized anxiety disorder 10299792 Active 2022 Rhoda Gurrola MD [address], [place], [address], [facility] 3 18:48:30 Obstructive sleep apnea of adult 6445050942637 Active 2022 Rhoda Gurrola MD [address], [place], [address], [facility] 3 13:06:14 Notes:Some problems listed i n Document: #[id number] could not be added to this patient's chart. Please review this document and add these problems to the patient's chart manually as needed. Problem Notes None recorded. Procedures Surgical History None recorded. Imaging Results Imaging Date Name Status LastModified by Organization Details LastModified Time 11/06/2023 home sleep study completed [facility] [address], [place], [address], 11/02/2024 14:04:46 11/06/2023 home sleep study completed [facility] [address] [place], [address], 11/26/2023 12:56:19 07/13/2024 XR, chest, 2 view completed [address], [address], 11/02/2024 14:04:14 07/13/2024 electrocardiogram completed [address], [address], 09/27/2024 09:49:58 08/12/2024 XR, chest completed [address], [address], 09/27/2024 09:49:58 Procedure Notes None recorded. Medical Equipment None Reported. Allergies No known drug allergies Medications Name Sig Start Date Stop Date Status Note LastModified by Organization Details LastModified Time d3 ultra strength 125 mcg (5000 ut) caps 06/21 completed Not Available Not Available Not Available methylpredn isolone dose pack 4 mg tbpk 07/27 completed Not Available Not Available Not Available doxycycline hyclate 100 mg caps 07/27 completed Not Available Not Available Not Available tramadol hcl 50 mg tabs 07/27 completed Not Available Not Available Not Available penicillin v potassium 500 mg tabs 07/27 completed Not Available Not Available Not Available celecoxib 200 mg capsule TAKE 1 CAPSULE BY MOUTH EVERY DAY 07/27 completed Not Available Not Available Not Available methocarbam ol 500 mg tablet TAKE 1 TABLET BY MOUTH NIGHTLY NEEDED FOR SPASMS 07/27 completed Not Available Not Available Not Available doxycycline hyclate 100 mg capsule TAKE 1 CAPSULE BY MOUTH TWICE DAILY FOR 10 DAYS active Not Available Not Available No t Available trazodone 50 mg tablet Take 1 tablet every day by oral route at bedtime. active Not Available Not Available No t Available cetirizine 10 mg tablet Take 1 tablet every day by oral route at bedtime. active Not Available Not Available No t Available ibuprofen 800 mg tablet TAKE 1 TABLET BY MOUTH EVERY 8 HOURS WITH FOOD NEEDED 06/21 completed Not Available Not Available Not Available Lidocaine Viscous 2 % mucosal solution APPLY 2 TO 5 ML TO COTTON BALL AND APPLY DIRECTLY TO TOOTH NEEDED FOR PAIN 04/02 completed Not Available Not Available Not Available meloxicam 15 mg tablet TAKE 1 TABLET BY MOUTH DAILY. DO NOT COMBINE WITH ANY OTHER NSAIDS 07/27 completed Not Available Not Available Not Available prednisone 20 mg tablet 07/27 completed Not Available Not Available Not Available dexamethaso ne 6 mg tablet TAKE 1 TABLET BY MOUTH DAILY 07/27 completed Not Available Not Available Not Available Zithromax Z-Ernie 250 mg tablet TAKE 2 TABLETS (500 MG) BY ORAL ROUTE ONCE DAILY FOR 1 DAY THEN 1 TABLET (250 MG) BY ORAL ROUTE ONCE DAILY FOR 4 DAYS 06/21 completed Not Available Not Available Not Available penicillin V potassium 500 mg tablet 07/27 completed Not Available Not Available Not Available propranolol 10 mg tablet TAKE 1 TABLET BY MOUTH THREE TIMES DAILY NEEDED 07/27 completed Not Available Not Available Not Available amoxicillin 875 mg tablet TAKE 1 TABLET BY MOUTH TWICE DAILY 06/21 completed Not Available Not Available Not Available famotidine 20 mg tablet TAKE 1 TABLET BY MOUTH TWICE DAILY active Not Available Not Available No t Available aspirin 325 mg tablet,brittany yed release TAKE 1 TABLET BY MOUTH EVERY DAY 07/27 completed Not Available Not Available Not Available benzonatate 100 mg capsule TAKE 1 CAPSULE BY MOUTH THREE TIMES DAILY active Not Available Not Available No t Available aspirin 81 mg chewable tablet TAKE 1 TABLET BY MOUTH DAILY active Not Available Not Available No t Available montelukast 10 mg tablet Take 1 tablet every day by oral route. active Not Available Not Available No t Available ibuprofen 600 mg tablet 06/21 completed Not Available Not Available Not Available methylpredn isolone 4 mg tablets in a dose pack FOLLOW PACKAGE DIRECTION S 07/27 completed Not Available Not Available Not Available cefdinir 300 mg capsule TAKE 1 CAPSULE BY MOUTH EVERY 12 HOURS 09/29 completed Not Available Not Available Not Available fluticasone propionate 50 mcg/actuati on nasal spray,suspe nsion SHAKE LIQUID AND USE 1 SPRAY IN EACH NOSTRIL EVERY DAY active Not Available Not Available No t Available cholecalcif dante (vitamin D3) 125 mcg (5,000 unit) capsule Take 1 capsule every day by oral route. 2023 active Not Available Not Available Not Avai lable naproxen 500 mg tablet TAKE 1 TABLET BY MOUTH EVERY 12 HOURS 07/27 completed Not Available Not Available Not Available amoxicillin 875 mg-potassiu m clavulanate 125 mg tablet Take 1 tablet every 12 hours by oral route. active Not Available Not Available No t Available cyclobenzap rine 5 mg tablet TAKE 1 TABLET BY MOUTH THREE TIMES DAILY 07/27 completed Not Available Not Available Not Available duloxetine 30 mg capsule,del ayed release Take 1 capsule every day by oral route. 09/16 completed Not Available Not Available Not Available duloxetine 60 mg capsule,del ayed release Take 1 capsule every day by oral route. 06/21 completed Not Available Not Available Not Available Mucinex DM 30 mg-600 mg tablet,exte nded release 12 hr Take 1 tablet every 12 hours by oral route. 2023 active Not Available Not Available Not Avai lable Gas Relief Extra Strength 125 mg chewable tablet CHEW AND SWALLOW 1 TABLET BY MOUTH THREE TIMES DAILY FOR 3 DAYS NEEDED FOR GAS OR PAIN OR CRAMPING 07/27 completed Not Available Not Available Not Available chlorhexidi ne gluconate 0.12 % mouthwash SWISH AND SPIT 15 ML FOR 30 SECONDS DIRECTED EVERY 12 HOURS 06/21 completed Not Available Not Available Not Available Zyrtec 10 mg capsule Take 1 capsule every day by oral route at bedtime. 07/27 completed Not Available Not Available Not Available [facility] (doxylamine ) 25 mg tablet TAKE 1 TABLET BY MOUTH EVERY NIGHT 30 MINUTES BEFORE BEDTIME 07/27 completed Not Available Not Available Not Available Vitals Date Recorded Body height Body mass index (BMI) Body weight Heart rate Respiratory rate Body temperature Systolic blood pressure Diastolic blood pressure Provider Name and Address Organization Details Last Updated DateTime 3 182.88 cm 31.2 kg/m2 118809. 25 g 76 /min 16 /min 98.4 [degF] 119 mm[Hg] 77 mm[Hg] Jailyn Goodwin [facility] 3 11:10:22 Date Recorded Body height Heart rate Respiratory rate Body temperature Body mass index (BMI) Body weight Systolic blood pressure Diastolic blood pressure Provider Name and Address Organization Details Last Updated DateTime 3 182.88 cm 68 /min 16 /min 99 [degF] 31.7 kg/m2 264728. 61 g 127 mm[Hg] 73 mm[Hg] Neel Reid [facility] 3 12:21:27 Date Recorded Body height Body mass index (BMI) Body weight Body temperature Respiratory rate Heart rate Systolic blood pressure Diastolic blood pressure Provider Name and Address Organization Details Last Updated DateTime 4 182.88 cm 31.1 kg/m2 044190. 65 g 98.1 [degF] 16 /min 69 /min 120 mm[Hg] 75 mm[Hg] Jailyn Goodwin [facility] 4 10:49:10 Date Recorded Body height Body mass index (BMI) Body weight Body temperature Respiratory rate Heart rate Systolic blood pressure Diastolic blood pressure Provider Name and Address Organization Details Last Updated DateTime 4 182.88 cm 30.9 kg/m2 789010. 06 g 98.3 [degF] 16 /min 76 /min 117 mm[Hg] 66 mm[Hg] Jailyn Goodwin [facility] 4 16:49:30 Date Recorded Body height Body temperature Respiratory rate Heart rate Body mass index (BMI) Body weight Systolic blood pressure Diastolic blood pressure Provider Name and Address Organization Details Last Updated DateTime 4 182.88 cm 97.7 [degF] 16 /min 80 /min 30.9 kg/m2 258254. 06 g 117 mm[Hg] 70 mm[Hg] Jailyn Goodwin [facility] 4 09:17:22 Social History Question Answer Notes LastModified by Organizat ion Details LastModified Time Tobacco Smoking Status Never Smoker Rhoda Gurrola MD [address], [place], [address], [facility] 09/30/2018 09:49:40 What Is Your Level Of Alcohol Consumption? None Information not available 09/30/2018 Are You Currently Employed? Yes Information not available 09/30/2018 Which Illicit Or Recreational Drugs Have You Used? No [facility] Information not available 09/30/2018 Live Alone Or With Others? Alone [facility] – Information not available 09/30/2018 Marital Status Single [facility] Informatio n not available 09/30/2018 What Was The Date Of Your Most Recent Tobacco Screening? 09/29/2022 [email or web address] Information not available 09/29/2022 Sex: Unknown Functional Status Question Answer Note LastModified by Organization D etails LastModified Time Are you able to care for yourself? Yes [facility] – Information n ot available 09/30/2018 Mental Status None recorded. Family History Relationship Description Onset Age of this Age Resolved Age Notes LastModified by Organization Details LastModified Time Father Benign hypertension mshenouda Not available 12/2017 09:37:37 Mother Benign hypertension mshenouda Not available 12/2017 09:37:37 Medical History No medical history recorded. Immunizations Vaccine Type Date Status Note Provider Nam e and Address Organization Details Recorded Time Influenza, split virus, quadrivalent, preservative 7 completed Not Available [facility] 11/11/2022 22:22:52 Past Encounters Encounter ID Performer Location Encounter Start Date Encounter Closed Date Diagnosis/Indication Diagnosis SNOMED-CT Code Diagnosis ICD10 Code Diagnosis Note [id number] Rhoda Gurrola MD [employer], [place] [address] [place] [address] 09/30/2018 08:53:21 09/30/2018 10:06:06 Adult health examination 503848526 Z00.00 Abdominal pain 81486890 R10.9 2 days off work Heart murmur 87497658 R0 1.1 H/O per pt , could not hear it today Allergic r hinitis caused by pollen 98333147 J30.1 Active or passive immunization 574737845 Z23 Screening procedure 2013 5006 Z13.9 Cholesterol screening 27 9459703 Z13.220 [id number] JESSEE JAY APN [facility], [facility] [address] [place] [address] 12/07/2018 12:42:33 12/07/2018 13:55:13 Dysuria 18129376 R30.0 Eruption 188664025 R21 bilateral hands - one appears to be fluid filled - blister -one located on finger is dense in natureif does not clear up -- derm referral [id number] JESSEE JAY APN [facility], [facility] [address] [facility] [address] [place] [address] 08/02/2019 12:33:05 08/02/2019 13:06:44 Heart murmur 57081933 R01.1 H/O per pt , could not hear it today Active or passive immunization 067632016 Z23 Screening procedure 2012 5006 Z13.9 Cholesterol screening 27 2573833 Z13.220 Fatigue 55397769 R53.83 with trouble mentation -x 1 week dry cough and unformed stools x 3 daysno night sweatsno swollen lymph nodes-- if symptoms do not improve of worsen, call the office Insomnia 523153608 G47.0 0 last several months working 3 jobs -not interested in sleeping medication Diarrhea 56702581 R19.7 Chest pain 16965377 R07. 9 x few dayswith sob at times [id number] Rhoda Gurrola MD [facility], [facility] [address] [facility] [address] [place] [address] 07/27/2022 12:35:08 07/27/2022 13:22:31 Adult health examination 429050222 Z00.00 Pharyngitis 503670918 J0 2.9 Body mass index 25-29 - overweight 322647046 Z68.28 education Vitamin D deficiency 347 61444 E55.9 Active or passive immunization 944558106 Z23 History of SARS-CoV-2 29 17338059 70431656 Z86.16 tested +ve 01/2022 and 02/2021 Viral screening 51255665 4 Z11.59 [id number] Rhoda Gurrola MD Lolita [facility], [facility] [address] [facility] [address] [place] [address] 09/29/2022 15:09:52 09/29/2022 16:26:42 Mixed anxiety and depressive disorder 235829871 F41.8 No SI , No HI Congestion of nasal sinus 33928482 R09.81 [id number] Rhoda Gurrola MD [facility] [address] [facility] [address] [place] [address] 10/20/2022 11:16:45 10/20/2022 12:27:54 Near syncope 006966230 R55 off work today Mixed anxi ety and depressive disorder 413894224 F41.8 No SI , No HIFMLA 3 days a month PRN Allergic r hinitis caused by pollen 69296840 J30.1 Snoring 61341332 R06.83 [id number] Rhoda Gurrola MD [facility], [facility] [address] [place] [address] 12/25/2022 09:09:41 12/25/2022 10:20:31 [id number] Rhoda Gurrola MD [facility], [facility] [address] [place] [address] 01/01/2023 09:29:45 01/01/2023 14:00:22 [id number] Rhoda Gurrola MD [facility], [facility] [address] [place] [address] 04/02/2023 11:02:27 04/02/2023 11:55:31 Near syncope 334813386 R55 Mixed anxi ety and depressive disorder 936196440 F41.8 No SI , No HIFMLA 3 days a month PRN Allergic r hinitis caused by pollen 56617242 J30.1 FMLA 3 days a month PRN Snoring 03880533 R06.83 Vitamin D deficiency 347 43774 E55.9 Active or passive immunization 646107018 Z23 did not get flu shot Hyperlipid emia screening 511863978 Z13.220 Viral screening 91755402 4 Z11.59 Body mass index 30+ - obesity 542388095 Z68.30 education [id number] Rhoda Gurrola MD [facility], [facility] [address] [place] [address] 05/25/2023 14:27:35 05/25/2023 15:17:46 Allergic rhinitis caused by pollen 71041046 J30.1 FMLA 3 days a month PRNoff work 05/24/23 , 05/25/23 and 05/22/23 Near syncope 173873211 R 55 pls do labs from 04/02/23no recurrence [id number] Rhoda Gurrola MD [employer] [employer], [facility] [address] [place] [address] 09/08/2023 10:31:17 09/08/2023 11:24:09 Upper respiratory infection 36756811 J06.9 missed work 08/16/23 through 08/20/23 , 08/30/23 through 08/31/23 and 09/05/23 through 09/07/23be tter nowFMLA 5 page form done today Allergic r hinitis caused by pollen 52893544 J30.1 FMLA 3 days a month PRNpls do labs from 04/02/23 visit Near syncope [id number] R 55 pls do labs from 04/02/23no recurrence Mixed anxi ety and depressive disorder 106299533 F41.8 No SI , No HIFMLA 3 days a month PRN Active or passive immunization 661625252 Z23 did not get flu shot Screening procedure 2012 5006 Z13.9 per pt had optometry 04/2023 [id number] Rhoda Gurrola MD [employer], [facility] [address] [place] [address] 09/16/2023 15:47:18 09/16/2023 16:31:02 Mixed anxiety and depressive disorder 995346342 F41.8 No SI , No HI3 weeks offpsych evalpls do labs from last visits Body mass index 30+ - obesity 763745325 Z68.30 education Allergic r hinitis caused by pollen 66712817 J30.1 FMLA 3 days a month PRNpls do labs from 04/02/23 visit Active or passive immunization 014116058 Z23 did not get flu shot [id number] Rhoda Gurrola MD [facility], [facility] [address] [place] [address] 10/18/2023 17:36:16 10/18/2023 19:16:10 Mixed anxiety and depressive disorder 793058068 F41.8 No SI , No HI4 weeks off 09/05/23 till 10/10/23di d not see psych evalwas off work from 09/05/23 2ry to stress , decreased concentrat ion , and insomnia , started duloxetine 60 , feels better , back to work 10/10/23 Body mass index 30+ - obesity 475393470 Z68.30 education Allergic r hinitis caused by pollen 79791570 J30.1 FMLA 3 days a month PRN Active or passive immunization 369143879 Z23 did not get flu shot Vitamin D deficiency 347 03840 E55.9 Mixed hyperlipidemia 267 215561 E78.2 Snoring 68879865 R06.83 [id number] Rhoda Gurrola MD [employer] [employer], [facility] [address] [place] [address] 11/08/2023 17:14:48 11/08/2023 18:53:19 Moderate recurrent major depression 40037333 F33.1 No SI , No HI4 pages disability form done today Generalize d anxiety disorder 50366553 F41.1 better Snoring 91214508 R06.83 doing sleep study now [id number] Rhoda Gurrola MD [employer] [employer], [facility] [address] [place] [address] 11/17/2023 10:56:52 11/17/2023 11:46:04 Toothache 94963532 K08.89 better with augmentin and motrinmiss ed work pages paper work form done todayF/U with dentist Mixed anxi ety and depressive disorder 116661217 F41.8 No SI , No HI4 weeks off 09/05/23 till 10/10/23di d not see psych evalwas off work from 09/05/23 2ry to stress , decreased concentrat ion , and insomnia , started duloxetine 60 , feels better , back to work 10/10/23 Snoring 90114561 R06.83 did sleep study , did not get result yet Active or passive immunization 414695634 Z23 did not get flu shot Vitamin D deficiency 347 14407 E55.9 [id number] Rhoda Gurrola MD [employer] [employer], [facility] [address] [place] [address] 11/26/2023 11:56:35 11/26/2023 13:32:57 Mixed anxiety and depressive disorder 655157725 F41.8 No SI , No HI4 weeks off 09/05/23 till 10/10/23se en psych evalwas off work from 09/05/23 2ry to stress , decreased concentrat ion , and insomnia , started duloxetine 60 , feels better , back to work pages of paper form done today Obstructiv e sleep apnea of adult 1427636838 103 G47.33 Deviated nasal septum 12 7718727 J34.2 Active or passive immunization 240685757 Z23 did not get flu shot [id number] Rhoda Gurrola MD [employer], [facility] [address] [place] [address] 06/21/2024 10:38:24 06/21/2024 11:56:09 Toothache 14861396 K08.89 better with augmentin and motrinmiss ed work 06/11/24 though 06/13/2410 pages paper work form done todayF/U with dentist Body mass index 30+ - obesity 575460190 Z68.30 education Mixed anxi ety and depressive disorder 931174306 F41.8 No SI , No HIgood off meds Mixed hyperlipidemia 267 091856 E78.2 last LDL 09/16/24 Obstructiv e sleep apnea of adult 8225706044 103 G47.33 Vitamin D deficiency 347 87060 E55.9 last level 09/16/24 Insomnia 641474915 G47.0 0 Active or passive immunization 467106279 Z23 did not get flu shot [id number] Rhoda Gurrola MD [employer], [facility] [address] [place] [address] 08/10/2024 16:23:41 08/10/2024 17:36:09 Atypical chest pain 280560445 R07.89 off work 08/14/24 Gastroesop hageal reflux disease without esophagitis 301331687 K21.9 Vitamin D deficiency 347 60583 E55.9 last level 09/16/24 Allergic r hinitis caused by pollen 55632638 J30.1 FMLA 3 days a month PRN Insomnia 039432443 G47.0 0 Active or passive immunization 082762890 Z23 did not get flu shot [id number] Rhoda Gurrola MD [facility], [facility] [address] [place] [address] 09/27/2024 09:11:44 09/27/2024 10:00:08 Productive cough-yellow sputum 175529421 R09.3 off start 4 days 09/26/24 Gastroesop hageal reflux disease without esophagitis 748422758 K21.9 Generalize d anxiety disorder 72452157 F41.1 better Mixed hyperlipidemia 267 888515 E78.2 last LDL 09/16/24 Obstructiv e sleep apnea of adult 8035798503 103 G47.33 Long-term drug therapy 955067633 Z79.891 Active or passive immunization 793306957 Z23 did not get flu shot Health Concerns Section Related Observation LastModified by Organization Detai ls LastModified Time None Recorded Concern Status LastModified by Organization Details LastModified Time None Recorded Advance Directives Directive None Recorded Payers Encounter Date Sequence Insurance Name Policy Number Policy [place] Covered Member ID [place] Member ID Guarantor Name 11/17/2023 1 [facility] [id number] Robbi Grimaldo [id number] Robbi Grimaldo 11/26/2023 1 [facility] [id number] Robbi Grimaldo [id number] Robbi Grimaldo 06/21/2024 1 [facility] [id number] Robbi Grimaldo [id number] Robbi Grimaldo 08/10/2024 1 [facility] [id number] Robbi Grimaldo [id number] Robbi Grimaldo 09/27/2024 1 [facility] [id number] Robbi Grimaldo [id number] Robbi Grimaldo Notes Date Note Type Note Provider Name and Address Organization Details Recorded Time 11/17/2023 text/html Hypertension F/UReported bypatient.Medicati ons:taking medications as directed; no side effects from medication Lifestyle:regular exercise; limiting/avoiding salt; compliant with low salt diet Associated Symptoms:no dizziness; no lightheadedness; no chest pain; no shortness of breath; no palpitations; no edema; no calf pain with exertion; no headache went to ER for Rt upper 11/16/23 , better with Cintia Gurrola MD [address] [facility] [address], [place], [address], [facility] 11/17/2023 11:33:58 11/26/2023 text/html Hypertension F/UReported bypatient.Medicati ons:taking medications as directed; no side effects from medication Lifestyle:regular exercise; limiting/avoiding salt; compliant with low salt diet Associated Symptoms:no dizziness; no lightheadedness; no chest pain; no shortness of breath; no palpitations; no edema; no calf pain with exertion; no headache Rhoda Gurrola MD [address], [place], [address], [facility] 11/26/2023 13:07:54 06/21/2024 text/html Hypertension F/UReported bypatient.Medicati ons:taking medications as directed; no side effects from medication Lifestyle:regular exercise; limiting/avoiding salt; compliant with low salt diet Associated Symptoms:no dizziness; no lightheadedness; no chest pain; no shortness of breath; no palpitations; no edema; no calf pain with exertion; no headache went to ER for toothache , off work from 06/11/24 till 06/13/24 , better with Abx and IBP Rhoda Gurrola MD [address], [place], [address], [facility] 06/21/2024 11:42:38 08/10/2024 text/html Hypertension F/UReported bypatient.Medicati ons:taking medications as directed; no side effects from medication Lifestyle:regular exercise; limiting/avoiding salt; compliant with low salt diet Associated Symptoms:no dizziness; no lightheadedness; no chest pain; no shortness of breath; no palpitations; no edema; no calf pain with exertion; no headache went to ER for CP , workup is -ve Rhoda Gurrola MD [address], [place], [address], [facility] 08/10/2024 17:32:50 09/27/2024 text/html Hypertension F/UReported bypatient.Medicati ons:taking medications as directed; no side effects from medication Lifestyle:regular exercise; limiting/avoiding salt; compliant with low salt diet Associated Symptoms:no dizziness; no lightheadedness; no chest pain; no shortness of breath; no palpitations; no edema; no calf pain with exertion; no headache ST , cough , yellow sputum , 2 days Rhoda Gurrola MD [address] [place] [address] [address], [place], [address], [facility] 09/27/2024 09:51:08
--- OUTSIDE RECORDS SUMMARY | 2025-03-08 18:28 | XMS_ITS | Clinical Summary ---
Author Organization [facility] Address [address] [place] [address] Care Team Providers Care Ecg Technician Name Role Phone Rhoda Gurrola MD Primary Care Provider [phone] Allergies No known active allergies Medications aspirin 325 MG tablet Take 1 tablet (325 mg total) by mouth daily. 30 tablet 1 Active propranolol 20 MG tablet Take 0.5 tablets (10 mg total) by mouth 3 (three) times daily as needed (Agitation/anx iety). 20 tablet 1 Active naproxen 500 MG tablet Take 1 tablet (500 mg total) by mouth 2 (two) times daily with meals. 40 tablet 1 Active lidocaine viscous 2 % solution Apply 2-5 mLs to cotton ball and apply directly to tooth as needed for pain. 100 mL 1 Active famotidine 20 MG tablet Take 1 tablet (20 mg total) by mouth daily. 30 tablet 2 Active lidocaine viscous 2 % solution Take 5 mLs by mouth every 6 (six) hours as needed for Pain. Placed on cotton ball or gauze in place to affected tooth for 5 to 10 minutes, rinse and spit out following 100 mL 2 Active Active Problems No known active problems Family History Medical History Relation Comments Hypertension Father Hypertension Mother Prostate Cancer Paternal Grandfather Relation Status Comments Father Mother Paternal Grandfather Social History Tobacco Use Types Packs/Day Years Used Date Smoking Tobacco: Never Smokeless Tobacco: Never Alcohol Use Standard Drinks/Week Comments Yes 0 (1 standard drink = 0.6 oz pur e alcohol) socially Sex and Gender Information Value Date Recorded Sex Assigned at Not on file Legal Sex Male 11:46 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[employer] Gender Identity Not on file Sexual Orientation Not on file Last Filed Vital Signs Vital Sign Reading Time Taken Comments Blood Pressure 136/78 05/27/2024 8:35 PM CDT Pulse 89 05/27/2024 8:35 PM CDT Temperature 36.9 C (98.5 F) 05/27/2024 8:35 PM CDT Respiratory Rate 16 05/27/2024 8:35 PM CDT Oxygen Saturation 97% 05/27/2024 8:35 PM CDT Inhaled Oxygen Concentration - - Weight 97.5 kg (215 lb) 05/27/2024 8:35 PM CDT Height 182.9 cm (6') 05/27/2024 8:35 PM CDT Body Mass Index 29.16 05/27/2024 8:35 PM CDT Plan of Treatment Health Maintenance Due Date Last Done Comments Annual Physical 1990 Hepatitis C 2005 COVID-19 Vaccine ( season) 2024 DTaP, Tdap and Td Vaccines (6 - Td or Tdap) 09/15/2027 09/15/2017, 09/28/1995, 10/02/1992, Additional history exists Hepatitis B Vaccines Completed 09/13/2002, 03/18/2001, 12/10/2000 HPV Vaccines Aged Out No longer eligi ble based on patient's age to complete this topic Meningococcal B Vaccine Aged Out No l onger eligible based on patient's age to complete this topic Meningococcal Vaccine Aged Out No rasheeda marika eligible based on patient's age to complete this topic Pneumococcal Vaccine: Pediatrics (0 to 5 Years) and At-Risk Patients (6 to 64 Years) Aged Out No longer eligible based on patient's age to complete this topic RSV Immunizations Under 20 Months Aged Out No longer eligible based on patient's age to complete this topic Insurance [facility] Care Teams Ecg Technician Relationship Specialty Start Date End Date Rhoda Gurrola MD PCP - General INTERNAL MEDICINE 10/24/18
[2025-03-08 18:59] VITALS: BP 123/72; PULSE 93; RESP 15; TEMP 36.8; O2SAT 98
--- NOTE | 2025-03-08 18:59 | ECG_ITS ---
Test Date: 2025-03-08 19:12:00 Measurements Intervals [place] Rate: 88 P: 50 [place]: 174 QRS: 19 QRSD: 111 T: 31 QT: 354 QTc: 429 Interpretive Statements SINUS RHYTHM INCOMPLETE RIGHT BUNDLE BRANCH BLOCK MINIMAL Q WAVES- HIGH LATERAL LEADS NONSPECIFIC ST ELEVATION IN ANTEROLATERAL LEADS BORDERLINE T WAVE ABNORMALITY- INFERIOR LEADS BORDERLINE ECG Compared to ECG 07/13/2024 05:33:54 NO SIGNIFICANT CHANGE Electronically Signed On 03-08-2025 20:32:27 CDT by Barry Mcintyre D.O.
[2025-03-08 19:18] LABS: Basophils Absolute Auto 0.1 K/mm3 (0.0-0.1); Basophils Percent Auto 1.1 % (0.2-1.2); Eosinophils Absolute Auto 0.4 K/mm3 (0-0.3); Eosinophils Percent Auto 6.2 % (0-4.4); Hematocrit 48.4 % (42.0-52.0); Hemoglobin 16.1 g/dL (14.0-18.0); Immature Granulocyte Absolute 0.03 K/mm3 (0.00-0.031); Immature Granulocyte Percent A 0.5 % (0-0.5); Lymphocytes Absolute Auto 1.41 K/mm3 (0.9-3.2); Lymphocytes Percent Auto 21.2 % (18.3-44.2); Mean Corpuscular HGB Conc 33.3 g/dl (32-36); Mean Corpuscular Hemoglobin 31.6 pg (26-34); Mean Corpuscular Volume 94.9 fl (80-100); Mean Platelet Volume 10.5 fl (7.4-10.4); Monocytes Absolute Auto 0.7 K/mm3 (0.1-0.6); Monocytes Percent Auto 9.8 % (2.6-8.5); Neutrophils Absolute Auto 4.1 K/mm3 (1.3-6.7); Neutrophils Percent Auto 61.2 % (45.5-73.1); Platelet Count Result 263 k/mm3 (150-375); Red Cell Distribution Width 12.2 % (11.5-14.5); White Blood Count 6.7 K/mm3 (4.5-10.0)
[2025-03-08 19:28] LABS: Alanine Aminotransferase 33 U/L (6-50); Albumin Level 4.9 g/dL (3.5-5.1); Alkaline Phosphatase 39 U/L (38-126); Anion Gap 9 mmol/L (4-12); Aspartate Amino Transferase 33 U/L (17-59); Bilirubin,Total 0.5 mg/dL (0.2-1.3); Blood Urea Nitrogen 20 mg/dL (9-20); Calcium 9.6 mg/dL (8.4-10.2); Carbon Dioxide 30 mmol/L (22-30); Chloride 103 mmol/L (98-107); Estimated CRCL calculation 93 ml/min; Estimated Glomerular Filt Rate > 60; Glucose 93 mg/dL (65-110); Lipase 77 U/L (23-300); Potassium 4.5 mmol/L (3.4-5.0); Sodium 142 mmol/L (137-145)
[2025-03-08 19:30] LABS: INR 0.9; Prothrombin Time 12.8 Seconds (11.1-14.7)
[2025-03-08 19:31] LABS: Partial Thromboplastin Time 25.3 Seconds (22.3-36.8)
[2025-03-08 19:40] LABS: Troponin I 0.013 ng/mL (0.000-0.034)
--- NOTE | 2025-03-08 22:44 | ECG_ITS ---
Test Date: 2025-03-08 22:50:13 Measurements Intervals [place] Rate: 66 P: 20 [place]: 164 QRS: 14 QRSD: 107 T: 15 QT: 379 QTc: 397 Interpretive Statements SINUS RHYTHM WITH SINUS ARRHYTHMIA INCOMPLETE RIGHT BUNDLE BRANCH BLOCK NONSPECIFIC ST ELEVATION IN DIFFUSE LEADS BORDERLINE R WAVE PROGRESSION, ANTERIOR LEADS Compared to ECG 03/08/2025 19:12:00 No significant changes Electronically Signed On 03-09-2025 06:16:56 CDT by Barry Mcintyre D.O.
[2025-03-08 23:30] LABS: Troponin I 0.028 ng/mL (0.000-0.034)
[2025-03-09] VITALS (10 sets, daily range): BP systolic 123–132; BP diastolic 73–84; PULSE 55–78; RESP 13–17; TEMP 36.6–36.8; O2SAT 97–100; BMI 29.2
--- NOTE | 2025-03-09 02:46 | ED_ITS ---
HPI - Chest Pain General Chief Complaint: Chest Pain <Chloe Ang PA-C - Last Filed: 03/09/25 02:53> Stated Complaint: lightheaded, hot flashes <Chloe Ang PA-C - Last Filed: 03/09/25 02:53> Time Seen by Provider: 03/09/25 01:44 <Chloe Ang PA-C - Last Filed: 03/09/25 02:53> History of Present Illness HPI narrative: 39-year-old male with no past medical history presents to the emergency department for chest pain that started at 6:00 p.m.. Patient states he was sitting in a meeting when he began having pain in the left side of his chest that radiated to his left clavicle and had numbness down his left arm. He states the pain lasted several hours and had associated diaphoresis, lightheadedness and dyspnea. He describes the chest pain as a burning-type sensation that was worse with exertion and better at rest. He states the pain is largely resolved over the past few hours but does state he has some residual tightness to the left side of his chest. He has no personal are first-degree family cardiac history or stroke history. He does not smoke. He denies lower extremity edema, hemoptysis, history of VTE, recent surgeries or hospitalizations, abdominal pain, fever, cough. <Chloe Ang PA-C - Last Filed: 03/09/25 02:53> Related Data Allergies/Adverse Reactions: Allergies Allergy/AdvReac Type Severity Reaction Status Date / Time No Known Allergies Allergy Verified 10/16/22 19:24 <Chloe Ang PA-C - Last Filed: 03/09/25 02:53> Review of Systems 2 Review of Systems: All systems reviewed & are unremarkable except as noted in HPI and below <Chloe Ang PA-C - Last Filed: 03/09/25 02:53> PMFSH Family History Family History: Family History Mother Hypertension Father Hypertension <JANEEN Alvarez Last Filed: 03/09/25 02:53> Social History Social History: Social History Additional smoking assessment comments: nonsmoker Occupation/Education: occupation 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 Resting comfortably in exam bed HEAD: Normocephalic, atraumatic. EYES: PERRLA and EOMI. ENT: Nares clear, no rhinorrhea or epistaxis. Mucous membranes moist. NECK: Supple. CHEST: Clear to auscultation. No respiratory distress. No tenderness to chest wall HEART: Regular rate and rhythm. No murmur heard. Normal peripheral pulses. ABDOMEN: Soft, nontender, nondistended, normal active bowel sounds. EXTREMITIES: Normal range of motion. No edema. Negative Homans bilaterally SKIN: Warm, dry, no rash. NEURO: No focal deficits. Alert and oriented x3 <Chloe Ang PA-C - Last Filed: 03/09/25 02:53> Course ROUTE SALES DELIVERY DRIVER/PA Physician Supervision For this patient encounter, I reviewed the ROUTE SALES DELIVERY DRIVER or PA documentation, treatment plan, and medical decision making; and I had [id number] time with this patient. <Arnel Morataya MD - Last Filed: 03/09/25 04:14> Vital Signs Vital signs: Vital Signs Temperature 36.8 C 03/08/25 18:59 Pulse Rate 93 03/08/25 18:59 Respiratory Rate 15 03/08/25 18:59 Blood Pressure 123/72 03/08/25 18:59 Pulse Oximetry 98 03/08/25 18:59 Temperature 36.8 C 03/08/25 18:59 Pulse Rate 76 03/09/25 01:44 Respiratory Rate 17 03/09/25 01:44 Blood Pressure 124/82 03/09/25 01:44 Pulse Oximetry 100 03/09/25 01:44 Oxygen Delivery Room Air 03/09/25 01:42 <Chloe Ang PA-C - Last Filed: 03/09/25 02:53> Vital Signs Temperature 36.8 C 03/08/25 18:59 Pulse Rate 93 03/08/25 18:59 Respiratory Rate 15 03/08/25 18:59 Blood Pressure 123/72 03/08/25 18:59 Pulse Oximetry 98 03/08/25 18:59 Temperature 36.8 C 03/08/25 18:59 Pulse Rate 76 03/09/25 01:44 Respiratory Rate 17 03/09/25 01:44 Blood Pressure 124/82 03/09/25 01:44 Pulse Oximetry 100 03/09/25 01:44 Oxygen Delivery Room Air 03/09/25 01:42 <Arnel Morataya MD - Last Filed: 03/09/25 04:14> MDM - Chest Pain MDM Narrative Medical decision making narrative: 39-year-old male with no past medical history presents to the emergency department for chest pain that started at 6:00 p.m. today while sitting in a meeting. See HPI for further history. Triage vitals are stable. Patient is afebrile and nontoxic appearing resting comfortably in exam bed. EKG shows sinus rhythm with incomplete right bundle-branch block, nonspecific ST elevation in the anterior lateral leads with no residual depression, otherwise no acute ischemic changes. CBC without leukocytosis or anemia. Chemistries are unremarkable. Lipase is normal. Chest x-ray within normal limits. PERC rule is negative for PE. Initial troponin normal at 0.013, delta troponin did increase to 0.028. Patient updated on results. He was given aspirin in the ED and nitro.... Given uptrending troponin, plan to admit to the hospitalist for further evaluation. Patient in agreement with this. Discussed with hospitalist, Dr. Palencia, who is requesting a D-dimer. Pending d dimer results at time of sign-out to Dr. Morataya. <Chloe Ang PA-C - Last Filed: 03/09/25 02:53> 39-year-old male with no past medical history presents to the emergency department for chest pain that started at 6:00 p.m. today while sitting in a meeting. See HPI for further history. Triage vitals are stable. Patient is afebrile and nontoxic appearing resting comfortably in exam bed. EKG shows sinus rhythm with incomplete right bundle-branch block, nonspecific ST elevation in the anterior lateral leads with no residual depression, otherwise no acute ischemic changes. CBC without leukocytosis or anemia. Chemistries are unremarkable. Lipase is normal. Chest x-ray within normal limits. PERC rule is negative for PE. Initial troponin normal at 0.013, delta troponin did increase to 0.028. Patient updated on results. He was given aspirin in the ED and nitro.... Given uptrending troponin, plan to admit to the hospitalist for further evaluation. Patient in agreement with this. Discussed with hospitalist, Dr. Palencia, who is requesting a D-dimer. Pending d dimer results at time of sign-out to Dr. Morataya. D-dimer was negative <Arnel Morataya MD - Last Filed: 03/09/25 04:14> Lab Data Result diagrams: 03/08/25 19:07 03/08/25 19:07 <Chloe Ang PA-C - Last Filed: 03/09/25 02:53> Labs: Lab Results 03/08/25 03/08/25 03/09/25 Range/Units 19:07 22:56 03:36 WBC 6.7 (4.5-10.0) K/mm3 RBC 5.10 (4.6-6.20) M/mm3 Hgb 16.1 (14.0-18.0) g/dL Hct 48.4 (42.0-52.0) % MCV 94.9 (80-100) fl MCH 31.6 (26-34) pg MCHC 33.3 (32-36) g/dl RDW 12.2 (11.5-14.5) % Plt Count 263 (150-375) k/mm3 MPV 10.5 H (7.4-10.4) fl Immature Gran % (Auto) 0.5 (0-0.5) % Neut % (Auto) 61.2 (45.5-73.1) % Lymph % (Auto) 21.2 (18.3-44.2) % Sharp % (Auto) 9.8 H (2.6-8.5) % Eos % (Auto) 6.2 H (0-4.4) % Baso % (Auto) 1.1 (0.2-1.2) % Lymph # (Auto) 1.41 (0.9-3.2) K/mm3 Sharp # (Auto) 0.7 H (0.1-0.6) K/mm3 Eos # (Auto) 0.4 H (0-0.3) K/mm3 Baso # (Auto) 0.1 (0.0-0.1) K/mm3 Abs Immat Gran (auto) 0.03 (0.00-0.031) K/mm3 Absolute Neuts (auto) 4.1 (1.3-6.7) K/mm3 Absolute Nucleated RBC 0.000 (0.0-0.012) K/mm3 Nucleated RBC % 0.0 (0.0-0.2) % PT 12.8 (11.1-14.7) Seconds INR 0.9 APTT 25.3 (22.3-36.8) Seconds D-Dimer < 0.27 (<0.48) ug/mL Sodium 142 (137-145) mmol/L Potassium 4.5 (3.4-5.0) mmol/L Chloride 103 (98-107) mmol/L Carbon Dioxide 30 (22-30) mmol/L Anion Gap 9 (4-12) mmol/L BUN 20 D (9-20) mg/dL Creatinine 1.23 (0.7-1.3) mg/dL Estim Creat Clear Calc 93 ml/min Estimated GFR > 60 (59 - ) Glucose 93 (65-110) mg/dL Calcium 9.6 (8.4-10.2) mg/dL Total Bilirubin 0.5 (0.2-1.3) mg/dL AST 33 (17-59) U/L ALT 33 (6-50) U/L Alkaline Phosphatase 39 (38-126) U/L Troponin I 0.013 0.028 D < 0.012 D (0.000-0.034) ng/mL NT-Pro-B Natriuret Pep < 20 (19.9-100) pg/mL Total Protein 9.0 H (6.3-8.2) g/dL Albumin 4.9 (3.5-5.1) g/dL Lipase 77 (23-300) U/L 03/09/25 Range/Units 03:36 WBC (4.5-10.0) K/mm3 RBC (4.6-6.20) M/mm3 Hgb (14.0-18.0) g/dL Hct (42.0-52.0) % MCV (80-100) fl MCH (26-34) pg MCHC (32-36) g/dl RDW (11.5-14.5) % Plt Count (150-375) k/mm3 MPV (7.4-10.4) fl Immature Gran % (Auto) (0-0.5) % Neut % (Auto) (45.5-73.1) % Lymph % (Auto) (18.3-44.2) % Sharp % (Auto) (2.6-8.5) % Eos % (Auto) (0-4.4) % Baso % (Auto) (0.2-1.2) % Lymph # (Auto) (0.9-3.2) K/mm3 Sharp # (Auto) (0.1-0.6) K/mm3 Eos # (Auto) (0-0.3) K/mm3 Baso # (Auto) (0.0-0.1) K/mm3 Abs Immat Gran (auto) (0.00-0.031) K/mm3 Absolute Neuts (auto) (1.3-6.7) K/mm3 Absolute Nucleated RBC (0.0-0.012) K/mm3 Nucleated RBC % (0.0-0.2) % PT (11.1-14.7) Seconds INR APTT (22.3-36.8) Seconds D-Dimer (<0.48) ug/mL Sodium (137-145) mmol/L Potassium (3.4-5.0) mmol/L Chloride (98-107) mmol/L Carbon Dioxide (22-30) mmol/L Anion Gap (4-12) mmol/L BUN (9-20) mg/dL Creatinine (0.7-1.3) mg/dL Estim Creat Clear Calc ml/min Estimated GFR (59 - ) Glucose (65-110) mg/dL Calcium (8.4-10.2) mg/dL Total Bilirubin (0.2-1.3) mg/dL AST (17-59) U/L ALT (6-50) U/L Alkaline Phosphatase (38-126) U/L Troponin I (0.000-0.034) ng/mL NT-Pro-B Natriuret Pep Cancelled (19.9-100) pg/mL Total Protein (6.3-8.2) g/dL Albumin (3.5-5.1) g/dL Lipase (23-300) U/L <Chloe Ang PA-C - Last Filed: 03/09/25 02:53> Lab Results 03/08/25 03/08/25 03/09/25 Range/Units 19:07 22:56 03:36 WBC 6.7 (4.5-10.0) K/mm3 RBC 5.10 (4.6-6.20) M/mm3 Hgb 16.1 (14.0-18.0) g/dL Hct 48.4 (42.0-52.0) % MCV 94.9 (80-100) fl MCH 31.6 (26-34) pg MCHC 33.3 (32-36) g/dl RDW 12.2 (11.5-14.5) % Plt Count 263 (150-375) k/mm3 MPV 10.5 H (7.4-10.4) fl Immature Gran % (Auto) 0.5 (0-0.5) % Neut % (Auto) 61.2 (45.5-73.1) % Lymph % (Auto) 21.2 (18.3-44.2) % Sharp % (Auto) 9.8 H (2.6-8.5) % Eos % (Auto) 6.2 H (0-4.4) % Baso % (Auto) 1.1 (0.2-1.2) % Lymph # (Auto) 1.41 (0.9-3.2) K/mm3 Sharp # (Auto) 0.7 H (0.1-0.6) K/mm3 Eos # (Auto) 0.4 H (0-0.3) K/mm3 Baso # (Auto) 0.1 (0.0-0.1) K/mm3 Abs Immat Gran (auto) 0.03 (0.00-0.031) K/mm3 Absolute Neuts (auto) 4.1 (1.3-6.7) K/mm3 Absolute Nucleated RBC 0.000 (0.0-0.012) K/mm3 Nucleated RBC % 0.0 (0.0-0.2) % PT 12.8 (11.1-14.7) Seconds INR 0.9 APTT 25.3 (22.3-36.8) Seconds D-Dimer < 0.27 (<0.48) ug/mL Sodium 142 (137-145) mmol/L Potassium 4.5 (3.4-5.0) mmol/L Chloride 103 (98-107) mmol/L Carbon Dioxide 30 (22-30) mmol/L Anion Gap 9 (4-12) mmol/L BUN 20 D (9-20) mg/dL Creatinine 1.23 (0.7-1.3) mg/dL Estim Creat Clear Calc 93 ml/min Estimated GFR > 60 (59 - ) Glucose 93 (65-110) mg/dL Calcium 9.6 (8.4-10.2) mg/dL Total Bilirubin 0.5 (0.2-1.3) mg/dL AST 33 (17-59) U/L ALT 33 (6-50) U/L Alkaline Phosphatase 39 (38-126) U/L Troponin I 0.013 0.028 D < 0.012 D (0.000-0.034) ng/mL NT-Pro-B Natriuret Pep < 20 (19.9-100) pg/mL Total Protein 9.0 H (6.3-8.2) g/dL Albumin 4.9 (3.5-5.1) g/dL Lipase 77 (23-300) U/L 03/09/25 Range/Units 03:36 WBC (4.5-10.0) K/mm3 RBC (4.6-6.20) M/mm3 Hgb (14.0-18.0) g/dL Hct (42.0-52.0) % MCV (80-100) fl MCH (26-34) pg MCHC (32-36) g/dl RDW (11.5-14.5) % Plt Count (150-375) k/mm3 MPV (7.4-10.4) fl Immature Gran % (Auto) (0-0.5) % Neut % (Auto) (45.5-73.1) % Lymph % (Auto) (18.3-44.2) % Sharp % (Auto) (2.6-8.5) % Eos % (Auto) (0-4.4) % Baso % (Auto) (0.2-1.2) % Lymph # (Auto) (0.9-3.2) K/mm3 Sharp # (Auto) (0.1-0.6) K/mm3 Eos # (Auto) (0-0.3) K/mm3 Baso # (Auto) (0.0-0.1) K/mm3 Abs Immat Gran (auto) (0.00-0.031) K/mm3 Absolute Neuts (auto) (1.3-6.7) K/mm3 Absolute Nucleated RBC (0.0-0.012) K/mm3 Nucleated RBC % (0.0-0.2) % PT (11.1-14.7) Seconds INR APTT (22.3-36.8) Seconds D-Dimer (<0.48) ug/mL Sodium (137-145) mmol/L Potassium (3.4-5.0) mmol/L Chloride (98-107) mmol/L Carbon Dioxide (22-30) mmol/L Anion Gap (4-12) mmol/L BUN (9-20) mg/dL Creatinine (0.7-1.3) mg/dL Estim Creat Clear Calc ml/min Estimated GFR (59 - ) Glucose (65-110) mg/dL Calcium (8.4-10.2) mg/dL Total Bilirubin (0.2-1.3) mg/dL AST (17-59) U/L ALT (6-50) U/L Alkaline Phosphatase (38-126) U/L Troponin I (0.000-0.034) ng/mL NT-Pro-B Natriuret Pep Cancelled (19.9-100) pg/mL Total Protein (6.3-8.2) g/dL Albumin (3.5-5.1) g/dL Lipase (23-300) U/L <Arnel Morataya MD - Last Filed: 03/09/25 04:14> Discharge Plan Discharge Clinical Impression: Chest pain Qualifiers: Chest pain type: unspecified Qualified Code(s): R07.9 - Chest pain, unspecified <Chloe Ang PA-C - Last Filed: 03/09/25 02:53> Patient Disposition: Still a Patient <Chloe Ang PA-C - Last Filed: 03/09/25 02:53> Condition: Stable <Chloe Ang PA-C - Last Filed: 03/09/25 02:53> Patient Language: Sami <Chloe Ang PA-C - Last Filed: 03/09/25 02:53> Prescriptions: No Action acetaminophen 500 mg capsule 1,000 mg PO Q6H PRN (Reason: pain) Qty: 20 0RF ibuprofen 600 mg tablet 600 mg PO TID PRN (Reason: pain) Qty: 20 0RF <Chloe Ang PA-C - Last Filed: 03/09/25 02:53> Follow-up/Referrals: Galileo,MD Rhoda [Primary Care Provider] - <Chloe Ang PA-C - Last Filed: 03/09/25 02:53> Sign Out Sign Out Data: Patient Sign Out occurred on 03/09/25 at 03:44. Patient's care was discussed, and care was transferred from Chloe Ang PA-C to Arnel Morataya MD. <Chloe Ang PA-C - Last Filed: 03/09/25 02:53>
[2025-03-09] MEDS: ASPIRIN 81 MG CHEWABLE TABLET 324 MG (02:58)
[2025-03-09] MEDS: NITROGLYCERIN SL 0.4 MG TABLET SUBLINGUAL (02:59)
--- OUTSIDE RECORDS SUMMARY | 2025-03-09 03:06 | XMS_ITS | Clinical Summary ---
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
--- OUTSIDE RECORDS SUMMARY | 2025-03-09 03:06 | XMS_ITS | Referral Summary ---
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
--- OUTSIDE RECORDS SUMMARY | 2025-03-09 03:06 | XMS_ITS | Clinical Summary ---
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
--- OUTSIDE RECORDS SUMMARY | 2025-03-09 03:06 | XMS_ITS | CONTINUITY OF CARE DOCUMENT ---
Author Name heidi gordon Address Unknown Organization [facility] Address [address] [place] [address] Phone [phone] Care Team Providers Care Back End Web Developer Name Role Phone Poncho Mix MD Unavailable Poncho Mix MD Unavailable PROBLEMS Condition Status Date Provider Notes Chest pain active Poncho Mix MD Fatigue active Poncho Mix MD Cardiovascular screening active Poncho oden MD Palpitations active Poncho Mix MD Dizziness active Poncho Mix MD ENCOUNTERS Date Type Provider Location Encounter Diag nosis - In-person encounter Office Visit Poncho Mix MD [facility] Chest painFatigueCardiovascular screeningPalpitationsDizziness VITAL SIGNS Date [...] active null 5 qieuser qieuser Imported from [employer] (02-Mar-2022 at 01:45:00 PM) omeprazole 20 mg capsule,delayed release(DR/EC) active 40 mg oral 7 qieuser qieuser Imported from [employer] (02-Mar-2022 at 01:45:00 PM) METHOCARBAMOL 500 MG TABS active 500 mg oral 5 qieuser qieuser Imported from [employer] (02-Mar-2022 at 01:45:00 PM) celecoxib 200 mg capsule active 200 mg oral 5 qieuser qieuser Imported from [employer] (02-Mar-2022 at 01:45:00 PM) BENZONATATE 100 MG CAPS active 100 mg oral 6 qieuser qieuser Imported from [employer] (02-Mar-2022 at 01:45:00 PM) aspirin 81 mg tablet,chewable completed 81 mg oral 5 - 4 qieuser qieuser Imported from [employer] (02-Mar-2022 at 01:45:00 PM) SOCIAL HISTORY Date Observation Value Provider number of grandchildren Poncho Mix MD social history E&M S moking History: Araceli neves has never smoked. Poncho Mix MD social history reviewed E&M revi ewed - no changes required Poncho Mix MD drug use no Aisha hernandez alcohol use, average drinks per day social Aisha Sandoval alcohol use yes Aisha hernandez smoking status Never smoker Aisha peterson INSURANCE PROVIDERS Payer name Policy type / Coverage type [place] [employer] party ID [employer] [id number] TREATMENT PLAN Date Name Performer [id number],W, Poncho Urrutia ra, MD [id number],W, Poncho Urrutia ra, MD [id number],W, Poncho Urrutia ra, MD [id number],W, Poncho Urrutia ra, MD Cardiology Poncho [place] Cardiology Poncho [place] Cardiology Poncho [place] Cardiology Poncho [place] Date Name Holter Ext (8-14d) Monitor - Telemetry (Mobile Cardiac) Stress Routine Complete Echo
--- OUTSIDE RECORDS SUMMARY | 2025-03-09 03:06 | XMS_ITS | Clinical Summary ---
Author Organization [facility] Address [address] [place] [address] Care Team Providers Care Radiology Technician Name Role Phone Unavailable Primary Care Provider Unavailabl e Source Comments [facility],non-owned Affiliates and Associated Physician Practices is amultiple site organization consisting of ambulatory clinics and hospital sitesin [place], [place], [place] and [place]. This disclosure is being madepursuant to the Care Everywhere program and may not contain all information available regarding this patient. Last updated [email or web address] [facility] Allergies No known active allergies Medications Be [...]
[2025-03-09 03:57] LABS: D Dimer < 0.27 ug/mL (<0.48)
[2025-03-09 04:04] LABS: NT Pro B Type Natriuretic Pept < 20 pg/mL (19.9-100); Troponin I < 0.012 ng/mL (0.000-0.034)
--- NOTE | 2025-03-09 04:20 | ECG_ITS ---
Test Date: 2025-03-09 04:25:09 Measurements Intervals [place] Rate: 62 P: 31 VA: 175 QRS: 18 QRSD: 112 T: 30 QT: 408 QTc: 415 Interpretive Statements SINUS RHYTHM INCOMPLETE RIGHT BUNDLE BRANCH BLOCK MINIMAL Q WAVES- HIGH LATERAL LEADS NONSPECIFIC ST ELEVATION IN DIFFUSE LEADS BORDERLINE ECG Compared to ECG 03/08/2025 22:50:13 NO SIGNIFICANT CHANGE Electronically Signed On 03-09-2025 06:26:32 CDT by Barry Mcintyre D.O.
--- NOTE | 2025-03-09 07:00 | ADMIMU ---
This patient, Robbi Grimaldo, was admitted to IMU status, and placed in Intensive Care Unit-7. Patient/family oriented to hospital policies and general routines including ID bracelet, bed and alarms, visiting hours, pain management, procedures, bathroom and other care routines, personal items, smoking policy, room service/diet, and visiting hours. Valuables list has been completed. Information on how to activate the Rapid Response Team has been discussed. Patient/Family are encouraged to report perceived risks to care and to ask questions if they do not understand what they are told or what they should do.
--- NOTE | 2025-03-09 08:37 | ADMIMU ---
This patient, Robbi Grimaldo, was admitted to IMU status, and placed in Intensive Care Unit-7 on 03/09/25 at 0705. Patient/family oriented to hospital policies and general routines including ID bracelet, bed and alarms, visiting hours, pain management, procedures, bathroom and other care routines, personal items, smoking policy, room service/diet, and visiting hours. Valuables list has been completed. Information on how to activate the Rapid Response Team has been discussed. Patient/Family are encouraged to report perceived risks to care and to ask questions if they do not understand what they are told or what they should do.
[2025-03-09] MEDS: ASPIRIN 81 MG CHEWABLE TABLET PO (09:15)
[2025-03-09 09:46] LABS: Cholesterol 142 mg/dL (0-200); HDL Direct 45 mg/dL; Triglycerides 58 mg/dL (<150)
[2025-03-09 09:57] LABS: LDL Cholesterol Direct 84 mg/dL
--- NOTE | 2025-03-09 10:01 | EST_ITS ---
Patient Info Name: Robbi Grimaldo Age: 39 years : 1985 Gender: Male Ht: 72 in Wt: 216 lbs BSA: 2.25 m2 HR: 57 bpm BP: 134 / 79 mmHg Exam Date: 03/09/2025 12:19 PM Exam Location: Echo Lab Patient Status: Inpatient Admit Date: 03/09/2025 Staff Ordering Physician: Justin Caal MD Attending Provider: Hira Palencia MD Exercise Technologist: mily pillai Nurse: Payton Sun APN Exam Type: CA stress adam w NM Study Info Indications R07.9 - Chest pain, unspecified A regadenoson stress test was performed. Summary 1. No diagnostic STTW abnormalities of ischemia with Lexiscan. 2. Please correlate with nuclear medicine images, reported separately. 3. Stress test supervised by Payton Sun NP. Stress test interpreted by Justin Caal MD. Protocol: Lexiscan Stress ECG Details Stage: REST Duration (min): 0 min : 38 sec HR (bpm): 55 SBP (mmHg): --- DBP (mmHg): --- Stage: REST Duration (min): 5 min : 33 sec HR (bpm): 58 SBP (mmHg): 134 DBP (mmHg): 79 Stage: STAGE 1 Duration (min): 1 min : 0 sec HR (bpm): 105 SBP (mmHg): 129 DBP (mmHg): 76 Stage: RECOVERY Duration (min): 1 min : 0 sec HR (bpm): 105 SBP (mmHg): 129 DBP (mmHg): 76 Stage: RECOVERY Duration (min): 2 min : 0 sec HR (bpm): 100 SBP (mmHg): 129 DBP (mmHg): 76 Stage: RECOVERY Duration (min): 3 min : 0 sec HR (bpm): 92 SBP (mmHg): 116 DBP (mmHg): 70 Stage: RECOVERY Duration (min): 3 min : 14 sec HR (bpm): 99 SBP (mmHg): 116 DBP (mmHg): 70 Rest HR: 58 bpm Peak HR: 105 bpm Rest Sys BP: 134 mmHg Peak Sys BP: 129 mmHg Max Pred HR: 183 bpm % Max Pred HR: 57 % Target HR: 156 bpm Max RPP: 13,545 bpm*mmHg Total Time: 1 min : 0 sec Rest Anglin BP: 79 mmHg Peak Anglin BP: 76 mmHg Total Dose: 0.4 mg Resting ECG Sinus rhythm. Incomplete right bundle branch block. Stress ECG No diagnostic STTW abnormalities of ischemia with Lexiscan. Report Signatures
--- NOTE | 2025-03-09 10:02 | P.CONCA_ITS ---
Assessment and Plan Assessment and plan (1) Chest pain: Qualifiers: Chest pain type: unspecified Qualified Code(s): R07.9 - Chest pain, unspecified Code(s): R07.9 - Chest pain, unspecified Status: Acute Assessment and Plan: Will obtain nuclear stress test. If stress test is negative, patient can be discharged home. Keep patient NPO for stress test, okay to eat afterwards. History of Present Illness History of Present Illness Consult date/time: 03/09/25 10:02 Requesting physician: Arnel Morataya MD Consult reason: chest pain Reason For Visit: Chest pain Narrative: We are consulted for chest pain. Robbi is a 39 year old male with no prior cardiac history who presented to [facility] with chest pain. Reports sudden onset of left-sided chest pain when clocking in for work last night. Lasted for a few hours, and then spontaneously resolved. Has not had any recurrence of chest pain. Workup here shows negative troponins. EKG with sinus rhythm, nonspecific diffuse ST elevation; EKGs are unchanged compared to his prior ones. Reports having a stress test that was normal 1-2 years ago. Does not smoke tobacco. No family history of heart disease. He is feeling well this morning. Review of Systems 2 Review of Systems: All systems reviewed & are unremarkable except as noted in HPI and below (HPI) [facility] Family History Family History Mother Hypertension Father Hypertension Social History Social History Smoking status: Never smoker Additional smoking assessment comments: nonsmoker Alcohol intake: never Substance use: never Substance use type: does not use Do You Feel Safe in your Home?: Yes Lack of Transportation: No Lack of Food: Never True Current Housing: I Have Housing Concerned About Future Housing: No Difficulty Paying Gas/Electric Bills: No Difficulty Paying for Meds: No Currently Unemployed: No Education: Decline to Answer Difficulty w/ Childcare or Family Care: No Occupation/Education: occupation 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 Spiritual care concerns: No Meds Home Medications and Allergies Home Medications ?Medication ?Instructions ?Recorded ?Confirmed ?Type acetaminophen 500 mg capsule 1,000 mg (2 x 500 mg) PO Q6H PRN 07/13/24 03/09/25 Rx pain #20 caps ibuprofen 600 mg tablet 600 mg PO TID PRN pain #20 tabs 07/13/24 03/09/25 Rx Allergies Allergy/AdvReac Type Severity Reaction Status Date / Time No Known Allergies Allergy Verified 10/16/22 19:24 Vital Signs Vital Signs - 24 hr 03/08/25 18:59 03/09/25 01:42 03/09/25 01:44 Temperature 36.8 C Pulse Rate 93 65 Respiratory Rate 15 17 Blood Pressure 123/72 124/82 Pulse Oximetry 98 100 100 Oxygen Delivery Room Air 03/09/25 01:44 03/09/25 06:08 03/09/25 07:13 Temperature Pulse Rate 76 61 61 Respiratory Rate 16 16 Blood Pressure 123/84 123/84 Pulse Oximetry 99 99 Oxygen Delivery 03/09/25 08:00 03/09/25 08:51 Temperature 36.6 C Pulse Rate 55 L Respiratory Rate 13 Blood Pressure 123/73 Pulse Oximetry 98 Oxygen Delivery Room Air Exam 2 Const: General: comfortable and no acute distress HENMT: Mouth: Yes moist mucous membranes Eyes: General: appearance normal, both eyes and all related structures S clera: sclerae normal Neck: Neck: supple Chest: Other: No reproducible chest wall tenderness Resp: Effort & Inspection: normal respiratory effort Cardio: Rate: regular rate Rhythm: regular rhythm Heart sounds: no murmurs Skin: General skin exam: normal color Neuro: Speech: normal speech Psych: Mental Status: mental status grossly normal Affect: normal affect Results Labs and Meds 03/08/25 19:07 03/08/25 19:07 Lab results: Cardiac Enzymes 03/08/25 03/08/25 03/09/25 Range/Units 19:07 22:56 03:36 AST 33 (17-59) U/L Troponin I 0.013 0.028 D < 0.012 D (0.000-0.034) ng/mL Coagulation 03/08/25 Range/Units 19:07 PT 12.8 (11.1-14.7) Seconds APTT 25.3 (22.3-36.8) Seconds Lipids 03/09/25 Range/Units 03:36 Triglycerides 58 (<150) mg/dL Cholesterol 142 (0-200) mg/dL CBC 03/08/25 Range/Units 19:07 WBC 6.7 (4.5-10.0) K/mm3 RBC 5.10 (4.6-6.20) M/mm3 Hgb 16.1 (14.0-18.0) g/dL Hct 48.4 (42.0-52.0) % Plt Count 263 (150-375) k/mm3 Lymph # (Auto) 1.41 (0.9-3.2) K/mm3 [place] # (Auto) 0.7 H (0.1-0.6) K/mm3 Eos # (Auto) 0.4 H (0-0.3) K/mm3 Baso # (Auto) 0.1 (0.0-0.1) K/mm3 Comprehensive Metabolic Panel 03/08/25 Range/Units 19:07 Sodium 142 (137-145) mmol/L Potassium 4.5 (3.4-5.0) mmol/L Chloride 103 (98-107) mmol/L Carbon Dioxide 30 (22-30) mmol/L BUN 20 D (9-20) mg/dL Creatinine 1.23 (0.7-1.3) mg/dL Glucose 93 (65-110) mg/dL Calcium 9.6 (8.4-10.2) mg/dL AST 33 (17-59) U/L ALT 33 (6-50) U/L Alkaline Phosphatase 39 (38-126) U/L Total Protein 9.0 H (6.3-8.2) g/dL Albumin 4.9 (3.5-5.1) g/dL Patient Weight 03/09/25 23:59 Weight 98 kg
[2025-03-09 10:42] LABS: Troponin I < 0.012 ng/mL (0.000-0.034)
--- NOTE | 2025-03-09 11:37 | PC.NURSE ---
Pt left for lexiscan cardiac stress test.
--- NOTE | 2025-03-09 15:29 | P.SS_ITS ---
Same Day Admit/Disch: HPI History of Present Illness Chief complaint: Chest pain Narrative: Robbi Grimaldo is a 39 year old healthy male here for chest pain. Patient developed sharp left sided chest pain at rest waiting to start his shift at work. He felt hot but not diphoretic. Left arm was numb and tingling. Not palpable or pleuritc. Symptoms lasted about 4-5 hours and slowly abated. He has had similar episodes in the past (June 2024 and 2022). He has slight nausea and SOB. ALso with 'dryness of the eyes and staring off in space'. He is lifelong nonsmoker. No drug use. Occasional alcohol use. No HLD, HTN or DM. No family hx of early coronary disease. he does remeber feeling 'nervous and in panic'. He presented to the ED for evaluation. [facility] Past Medical History Medical History (Updated 03/09/25 @ 15:35 by Arnel Colon MD) No pertinent past medical history Surgical History Surgical History No history of previous surgery Family History Family History Mother Hypertension Father Hypertension Social History Social History (Updated 03/09/25 @ 15:36 by Arnel Colon MD) Social History: Lives with mother and brother Code status - full Surrogate decision maker - mother Smoking status: Never smoker Additional smoking assessment comments: nonsmoker Alcohol intake: never Substance use: never Substance use type: does not use Do You Feel Safe in your Home?: Yes Lack of Transportation: No Lack of Food: Never True Current Housing: I Have Housing Concerned About Future Housing: No Difficulty Paying Gas/Electric Bills: No Difficulty Paying for Meds: No Currently Unemployed: No Education: Decline to Answer Difficulty w/ Childcare or Family Care: No Occupation/Education: occupation 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 Spiritual care concerns: No Same Day Admit/Disch: Med Pre-admit Medications Home Medications ?Medication ?Instructions ?Recorded ?Confirmed ?Type acetaminophen 500 mg capsule 1,000 mg (2 x 500 mg) PO Q6H PRN 07/13/24 03/09/25 Rx pain #20 caps ibuprofen 600 mg tablet 600 mg PO TID PRN pain #20 tabs 07/13/24 03/09/25 Rx Review of Systems Review of Systems All systems reviewed & are unremarkable except as noted in HPI and below Exam Narrative: AF 97.8 123/73 58 13 99% ra Gen - well appearing male in no acute respiratory distress who is nontoxic- appearing lying semi recumbent in bed HEENT - normocephalic. Atraumatic. Pupils equal round and reactive. Extraocular motions intact. Sclera clear and anicteric. Nares patent. Oropharynx was clear. No oral lesions. Moist mucous membranes. Tongue was midline. Palate dev symmetrically. No facial asymmetry. Neck - neck was supple. No dominant adenopathy, thyromegaly or masses. Chest - lungs are clear to auscultation bilaterally. No wheezes or crackles. CV - heart was regular rate and rhythm. S1-S2. No murmurs gallops or rubs. Abd - abdomen was soft. Nontender. Nondistended. Positive bowel sounds. No organomegaly or masses. Ext - no clubbing, cyanosis or edema. 2+ DP pulses bilaterally. Neuro - patient is alert and oriented. Strength is 5/5 in both upper and lower extremities. Cranial nerves 2-12 are intact. Speech is clear. Psych - normal mood and affect. Patient is pleasant and cooperative. Skin - warm and dry. No rashes noted. DS: Data Data Completed and Pending Labs on day of discharge: Labs from last 24 hours 03/09/25 03/09/25 03/09/25 10:13 03:36 03:36 WBC RBC Hgb Hct MCV MCH MCHC RDW Plt Count MPV Immature Gran % (Auto) Neut % (Auto) Lymph % (Auto) [place] % (Auto) Eos % (Auto) Baso % (Auto) Lymph # (Auto) [place] # (Auto) Eos # (Auto) Baso # (Auto) Abs Immat Gran (auto) Absolute Neuts (auto) Absolute Nucleated RBC Nucleated RBC % PT INR APTT D-Dimer < 0.27 Sodium Potassium Chloride Carbon Dioxide Anion Gap BUN Creatinine Estim Creat Clear Calc Estimated GFR Glucose Calcium Total Bilirubin AST ALT Alkaline Phosphatase Troponin I < 0.012 < 0.012 D NT-Pro-B Natriuret Pep Cancelled < 20 Total Protein Albumin Triglycerides 58 Cholesterol 142 LDL Cholesterol Direct 84 HDL Direct 45 Lipase 03/08/25 03/08/25 22:56 19:07 WBC 6.7 RBC 5.10 Hgb 16.1 Hct 48.4 MCV 94.9 MCH 31.6 MCHC 33.3 RDW 12.2 Plt Count 263 MPV 10.5 H Immature Gran % (Auto) 0.5 Neut % (Auto) 61.2 Lymph % (Auto) 21.2 [place] % (Auto) 9.8 H Eos % (Auto) 6.2 H Baso % (Auto) 1.1 Lymph # (Auto) 1.41 [place] # (Auto) 0.7 H Eos # (Auto) 0.4 H Baso # (Auto) 0.1 Abs Immat Gran (auto) 0.03 Absolute Neuts (auto) 4.1 Absolute Nucleated RBC 0.000 Nucleated RBC % 0.0 PT 12.8 INR 0.9 APTT 25.3 D-Dimer Sodium 142 Potassium 4.5 Chloride 103 Carbon Dioxide 30 Anion Gap 9 BUN 20 D Creatinine 1.23 Estim Creat Clear Calc 93 Estimated GFR > 60 Glucose 93 Calcium 9.6 Total Bilirubin 0.5 AST 33 ALT 33 Alkaline Phosphatase 39 Troponin I 0.028 D 0.013 NT-Pro-B Natriuret Pep Total Protein 9.0 H Albumin 4.9 Triglycerides Cholesterol LDL Cholesterol Direct HDL Direct Lipase 77 DS: Summary Hospital Course Reason for hospitalization: 39 year old healthy male here for chest pain. Hospital Course: Patient admitted for chest pain. Vital signs were stable. EKG showing incomplete Rt BBB, minimal Q waves in high lateral lead and nonspecific ST elevation in anterolateral leads but no change from prior EKG. CXR clear. CBC, PT/PTT, DDimer and CMP normal. Troponin negative x4. Cardiology was consulted. Patient underwent Lexiscan stress test that showed normal myocardial perfusion at rest and during stress with EF of 67%. No ST-T wave abnormalities of ischemia with the Lexiscan. Patient overall did well was able be discharged home on 03/09/2025 Status at Discharge Cognitive/behavioral status at discharge: Stable Time Spent with Patient Time attestation: Total time spent providing and/or coordinating discharge services: 40 minutes Time spent: Greater than 30 minutes DS: Admitting Diagnosis Discharge Date 03/09/25 Admitting Diagnosis Chest pain DS: Discharge Diagnosis Discharge Diagnosis (1) Chest pain: Qualifiers: Chest pain type: unspecified Qualified Code(s): R07.9 - Chest pain, unspecified Code(s): R07.9 - Chest pain, unspecified Status: Acute Discharge Plan Discharge Attending physician on discharge: Arnel Colon Consulting providers: Justin Caal Discharging Clinician: Arnel Colon Anticipated Discharge Date/Time: 03/09/25 Patient Disposition: Home Activity: as tolerated Diet: regular Discharge Instructions: Follow-up with your primary care provider in 1-2 weeks. Please call for appointment. Follow-up with cardiology is 2-3 weeks. Please call for appointment. Thank you for using [facility] for your health care needs. Patient Instructions: Antibiotic Form, Chest Pain (GEN) Patient Language: [place]ian Stand Alone Forms: General Discharge Information Follow-up/Referrals: Justin Caal MD [Physician] - Call for Appointment Galileo,MD Rhoda [Primary Care Provider] - Call for Appointment Discharge Medications: Discontinued acetaminophen 500 mg capsule 1,000 mg PO Q6H PRN (Reason: pain) Qty: 20 0RF ibuprofen 600 mg tablet 600 mg PO TID PRN (Reason: pain) Qty: 20 0RF Date of admission: 03/09/25 04:16 Primary Care Provider: GalileoRhoda Admitting Provider: Hira Palencia Attending physician on admission: Hira Palencia Condition: Stable Hospitalist MIPS Advance Care Plan I have confirmed that the patient's Advanced Care Plan is present, code status is documented, or surrogate decision maker is listed in patient medical record.: Yes Medication Reconciliation I have utilized all available resources to obtain, update and review the patients current medications (includes all prescriptions, OTC, herbals, cannabis, and nutritional supplements).: Yes Heart Failure (Exclusion) Patient has history of Heart Transplant or Left Ventricular Assistive Device?: No IF YES, STOP HERE Heart Failure (Qualifier) Patient has current or prior documentation of LVEF less than or equal to 40%, or mod/servere depressed LVSF?: No IF NO, STOP HERE
== END 2025-03-09 16:30 | disposition home or self-care (01) ==
LOC: ANHED 03-09 03:44 → ANHICU 03-09 08:36 → ANHIMU 03-12 07:06
PROVIDERS: Physician Assistant; Student in an Organized Health Care Education/Training Program; Admitting Provider Internal Medicine; Emergency Provider Emergency Medicine; PCP Internal Medicine; Visit Provider Internal Medicine
DX: R07.9 Chest pain, unspecified (principal); R06.00 Dyspnea, unspecified; R20.0 Anesthesia of skin; Z79.899 Other long term (current) drug therapy
CPT/HCPCS: 36415; 71046; 78452; 80053; 80061; 83690; 83880; 84484; 85025; 85380; 85610; 85730; 93005; 93017; 99285; A9270; A9502; G0378; J2785